=== PATIENT | male | born 1960 | race Caucasian/White ===

== ENCOUNTER 2023-01-22 05:34 | Day surgery (SDC) | payer OTHER, SELFPAY ==
[2023-01-08 11:33] VITALS: BMI 32.2
[2023-01-22 06:29] VITALS: BP 152/88; PULSE 57; RESP 18; TEMP 36.9; O2SAT 98
--- NOTE | 2023-01-22 06:31 | PM.HPGS ---
History of Present Illness History of Present Illness Consent: Risks, benefits, and alternatives have been discussed and questions answered. Patient agrees to proceed with procedure. Chief complaint: Left Chronic Otitis Media Narrative: Alvaro Carrasco is a 62 year old male MYRINGOTOMY TUBE SURGERY POSTOPERATIVE DISCHARGE INSTRUCTIONS DR. PASTRANA [facility] 1. ACTIVITY Your child has received anesthesia for this procedure. He/she may feel somewhat dizzy and or sleepy after the surgery. Anesthesia agents can remain in one?s body for up to 24 hours. It is important for your child to rest for the remainder of the day and be under adult supervision. Your child should not ride his/her bike or perform activities that require coordination. Children are usually very grumpy and fussy for several hours following general anesthesia. 2. EAR DRAINAGE A small amount of drainage from the ear canal is normal following this surgery. This drainage or bleeding may continue for the next 3-7 days. The prescribed ear drops will treat this drainage. The drainage may contain a small amount of blood. A cotton ball may be placed in the ear canal opening. Drainage is often an indication that the tubes are ?doing their job?. Ear drainage after the first week of surgery is abnormal (but not an emergency). Please call Dr. Pastrana?s office if drainage is persistent. 3. PAIN A slight earache is not unusual. This is usually relieved by giving your child Tylenol. Severe pain should be reported to Dr. Pastrana. 4. POSTOPERATIVE CARE Try to avoid water from entering into the ear for up to 10 days. This can be accomplished by either having your child wear a shower cap or placing a small amount of Vaseline on a cotton ball and placing it in your child?s ear canal opening. Please avoid swimming until instructed to do so by Dr. Pastrana. Encourage your child to sneeze with his/her mouth open. When blowing their nose, please do so gently. Administer 3 drops of Ciprofloxacin 0.3% ear drops in both ears twice a day for 3 days, if applicable. 5. DIET Your child may resume their usual diet upon discharge. Nausea is very unlikely with the type of anesthesia that they have received. 6. FOLLOW UP APPOINTMENT Please call Dr. Pastrana?s office and schedule a follow up appointment in 1 week. 01/20 [facility] Past Medical History Medical History Crohn's colitis Fluid level behind tympanic membrane of left ear Hypertension Surgical History Surgical History H/O shoulder surgery Family History Family History Father Diabetes mellitus Hypertension Social History Social History Social History: Caffeine-coffee daily Smoking status: Never smoker Second hand tobacco smoke exposure: No Alcohol intake: current Substance use: never Substance use type: does not use Lack of Transportation: No Lack of Food: Never True Current Housing: I Have Housing Concerned About Future Housing: No Difficulty Paying Gas/Electric Bills: No Difficulty Paying for Meds: No Currently Unemployed: No Education: Master's Degree or Higher Difficulty w/ Childcare or Family Care: No Living arrangements: with family Spiritual care concerns: No Meds Home Medications and Allergies Home Medications Medication Instructions Recorded Confirmed Type amlodipine 2.5 mg tablet 2.5 mg PO DAILY 12/19/22 01/22/23 History lisinopril 10 mg tablet 10 mg PO DAILY 12/19/22 01/22/23 History Al
--- NOTE | 2023-01-22 06:36 | P.HP_ITS ---
History of Present Illness History of Present Illness Consent: Risks, benefits, and alternatives have been discussed and questions answered. Patient agrees to proceed with procedure. Chief complaint: Left Chronic Otitis Media Narrative: Alvaro Carrasoc is a 62 year old male Long history of left chronic otitis Review of Systems Review of Systems: All systems reviewed & are unremarkable except as noted in HPI and below Constitutional: Constitutional: Reports as per HPI ENT: Reports system reviewed and no additional complaints, except as documented and Reports as per HPI [facility] Past Medical History Medical History Crohn's colitis Fluid level behind tympanic membrane of left ear Hypertension Surgical History Surgical History H/O shoulder surgery Family History Family History Father Diabetes mellitus Hypertension Social History Social History Social History: Caffeine-coffee daily Smoking status: Never smoker Second hand tobacco smoke exposure: No Alcohol intake: current Substance use: never Substance use type: does not use Lack of Transportation: No Lack of Food: Never True Current Housing: I Have Housing Concerned About Future Housing: No Difficulty Paying Gas/Electric Bills: No Difficulty Paying for Meds: No Currently Unemployed: No Education: Master's Degree or Higher Difficulty w/ Childcare or Family Care: No Living arrangements: with family Spiritual care concerns: No Meds Home Medications and Allergies Home Medications Medication Instructions Recorded Confirmed Type amlodipine 2.5 mg tablet 2.5 mg PO DAILY 12/19/22 01/22/23 History lisinopril 10 mg tablet 10 mg PO DAILY 12/19/22 01/22/23 History Allergies Allergy/AdvReac Type Severity Reaction Status Date / Time No Known Allergies Allergy Verified 01/22/23 06:27 Vital Signs Vital Signs - 24 hr 01/22/23 06:29 Temperature 36.9 C Pulse Rate 57 L Respiratory Rate 18 Blood Pressure 152/88 H Pulse Oximetry 98 Oxygen Delivery Room Air Exam Const: General: cooperative HENMT: Ears: TM abnormal ( left TM retracted with fluid) Assessment and Plan Assessment and plan (1) Fluid level behind tympanic membrane of left ear: Code(s): H65.92 - Unspecified nonsuppurative otitis media, left ear Status: Acute Plan left myringotomy with tube
[2023-01-22] MEDS: LACTATED RINGERS 1,000 ML 30 ML IV CONT (06:45)
--- NOTE | 2023-01-22 06:51 | WPDANESEPPF ---
Anes - Initial Pre Proc Eval Procedure: Operation Date: 01/22/23 07:30 Proposed Procedures p Left Myringotomy with Insertion of Tube - Doron Locke MD Date/Time: 01/22/23 06:51 Surgeon: Doron Locke MD Pre Op Diagnosis: Left Chronic Otitis Media Patient Data Age: 62 Gender: M Height: 1.78 m Weight: 104.4 kg Last Vital Signs Temp 36.9 C 01/22/23 06:29 Pulse 57 L 01/22/23 06:29 Resp 18 01/22/23 06:29 BP 152/88 H 01/22/23 06:29 Pulse Ox 98 01/22/23 06:29 O2 Del Method Room Air 01/22/23 06:29 Allergies Allergy/AdvReac Type Severity Reaction Status Date / Time No Known Allergies Allergy Verified 01/22/23 06:27 Home Medications Medication Instructions Recorded Confirmed Type amlodipine 2.5 mg tablet 2.5 mg PO DAILY 12/19/22 01/22/23 History lisinopril 10 mg tablet 10 mg PO DAILY 12/19/22 01/22/23 History Patient hx anesthesia problems: none Family hx anesthesia problems: none Results Review: All pre-operative results and documents have been reviewed as part of the pre-operative evaluation. [facility] Past Medical History Medical History Crohn's colitis Fluid level behind tympanic membrane of left ear Hypertension Surgical History Surgical History H/O shoulder surgery Family History Family History Father Diabetes mellitus Hypertension Social History Social History Social History: Caffeine-coffee daily Smoking status: Never smoker Second hand tobacco smoke exposure: No Alcohol intake: current Substance use: never Substance use type: does not use Lack of Transportation: No Lack of Food: Never True Current Housing: I Have Housing Concerned About Future Housing: No Difficulty Paying Gas/Electric Bills: No Difficulty Paying for Meds: No Currently Unemployed: No Education: Master's Degree or Higher Difficulty w/ Childcare or Family Care: No Living arrangements: with family Spiritual care concerns: No Anes - Eval Final PreProcedure Day of Procedure 01/22/23 06:51 Patient weight: obese Heart: regular rate and rhythm Lungs: clear to auscultation Airway: Mallampati scale class II Neurological: alert and oriented Last oral intake: >/= 8 hours ASA classification: III Emergent: no Anesthetic plan: proceed Anesthesia type and monitoring: general and standard monitoring Results Review: All pre-operative results and documents have been reviewed as part of the pre-operative evaluation. Informed Consent: The patient's anesthetic plan and its attendant risks and benefits were discussed with the patient/family/POA. Questions were solicited and answers provided to the satisfaction of the patient/family/POA.
[2023-01-22] MEDS: CIPROFLOXACIN HCL 0.3% OP SOLN 2.5 ML BTL 4 DROP EACH EAR (07:21)
--- NOTE | 2023-01-22 07:21 | WPDHPUPDATE1 ---
History and Physical Update Update Date/Time: 01/22/23 07:21 History and Physical has been reviewed, including an updated exam of the patient. There are NO changes in the patient's condition. Risks, benefits, and alternatives have been discussed and questions answered. Patient agrees to proceed with procedure.
--- NOTE | 2023-01-22 07:23 | W.PM.PROC2 ---
Procedure Note - Detailed Date of Procedure 01/22/23 Pre-op Diagnosis Left Chronic Otitis Media Post-op Diagnosis Same Procedure Performed left tube Surgeon Doron Locke MD Anesthesia General Indications fabrice Description of Procedure Patient was prepped and draped in the in the usual fashion after induction of general anesthesia. The [l] ear was inspected. Cerumen was removed the ear canal. An anteroinferior incision sit incision was made fluid aspirated and a Teflont tube inserted. . Patient awakened returned to recovery in good condition. Estimated Blood Loss 0 Packing No Pathology None sent Complications None Condition Stable Disposition Same day [facility] Billing Surgery - Charge Forward: Surgery Billing
[2023-01-22 07:26] VITALS: BP 114/81; PULSE 61; RESP 16; TEMP 36.4; O2SAT 96
--- NOTE | 2023-01-22 07:35 | WPDANESPN ---
Anes - Prog Note Post-Op Date/Time: 01/22/23 07:35 Cardiovascular status: normal Respiratory status: normal Airway patency: baseline Mental status: baseline Post-Op hydration status: normal Vital Signs: Last Vital Signs Temp 36.9 C 01/22/23 06:29 Pulse 57 L 01/22/23 06:29 Resp 18 01/22/23 06:29 BP 152/88 H 01/22/23 06:29 Pulse Ox 98 01/22/23 06:29 O2 Del Method Room Air 01/22/23 06:29 Pain Score (VAS): 0/10 Patient Feedback: Patient satisfied with anesthetic care.
[2023-01-22 07:36] VITALS: BP 133/76; PULSE 60; RESP 16; O2SAT 95
[2023-01-22 07:46] VITALS: BP 130/83; PULSE 60; RESP 15; O2SAT 96
[2023-01-22 07:57] VITALS: BP 134/97; PULSE 55; RESP 16; O2SAT 96
== END 2023-01-22 08:40 | disposition home or self-care (01) ==
PROVIDERS: PCP Internal Medicine; Visit Provider Otolaryngology
DX: H65.22 Chronic serous otitis media, left ear (principal)
CPT/HCPCS: 69436; J7342

== ENCOUNTER 2023-02-12 09:04 | Outpatient (CLI) | payer OTHER, SELFPAY | END 2023-02-12 09:05 | disposition home or self-care (01) | LOC: ANHBWCAUD 09:06 | PROVIDERS: PCP Internal Medicine; Visit Provider Otolaryngology | DX: H65.92 Unspecified nonsuppurative otitis media, left ear (principal); H90.42 Sensorineural hearing loss, unilateral, left ear, with unrestricted hearing on the contralateral side; H90.71 Mixed conductive and sensorineural hearing loss, unilateral, right ear, with unrestricted hearing on the contralateral side | CPT/HCPCS: 92557; 92567 ==

== ENCOUNTER 2024-12-02 14:50 | Outpatient (CLI) | payer OTHER, SELFPAY ==
--- NOTE | ~2024-12-02 | CT_ITS ---
CT sinus wo con Ordering provider: Danya Griffith MD History: . J32.9 - Chronic sinusitis, unspecified . Comparison: The Technique: Thin slice Scans CT of the paranasal sinuses was performed with coronal and sagittal refor matted images. No IV contrast. . Automated exposure control and iterative reconstruction technique w ere employed. The dose-length product was 309.35 mGy-cm. Findings: NASAL SEPTUM: Mild left nasal septal deviation. OSTEOMEATAL UNITS: Bilaterally patent. NASAL TURBINATES AND NASOPHARYNX: Normal. PARANASAL SINUSES: Well aerated. VISUALIZED MASTOIDS: Minimal effusion the left mastoid air cells. Normal as visualized. BONES: Normal. SUPERFICIAL SOFT TISSUES/VISUALIZED BRAIN PARENCHYMA: Normal. IMPRESSION: Left nasal septal deviation. Other appearances are unremarkable. Reviewed, dictated and finalized at location A.
== END 2024-12-02 14:51 | disposition home or self-care (01) ==
PROVIDERS: PCP Internal Medicine; Visit Provider Otolaryngology Otolaryngology/Facial Plastic Surgery
DX: J32.9 Chronic sinusitis, unspecified (principal); J34.2 Deviated nasal septum
CPT/HCPCS: 70486

== ENCOUNTER 2024-12-15 10:39 | Outpatient (CLI) | payer OTHER, SELFPAY ==
--- OUTSIDE RECORDS SUMMARY | 2024-12-15 10:42 | XMS_ITS | Encounter Summary ---
Author Organization [facility] Health Address [address] [place] [address] Care Team Providers Care Date Puller Name Role Phone Unavailable Primary Care Provider Unavailabl e Encounter Details Date Type Department Care Team (Late st Contact Info) Description 06/27/2021 Lab Requisition [facility] Derm[facility] Lab [address] [place] [address] Uri Duenas Jr., MD [address] [place] [address] Social History Tobacco Use Types Packs/Day Years Used Date Smoking Tobacco: Never Assessed Sex and Gender Information Value Date Recorded Sex Assigned at Not on file Legal Sex Male 12:03 PM CDT Gender Identity Not on file Sexual Orientation Not on file documented as of this encounter Plan of Treatment Not on file documented as of this encounter Procedures Procedure Name Priority Date/Time Associated Diagnosis Comments DERMATOPATHOLOGY Routine 06/26/2021 12:0 0 AM POWER TOOL REPAIR TECHNICIAN documented in this encounter Results * DERMATOPATHOLOGY (06/26/2021 12:00 AM POWER TOOL REPAIR TECHNICIAN) Case Report Dermatopathology Report Case: [id number] Authorizing Provider: Uri Duenas Jr., MD Collected: 06/26/2021 12:00 AM Ordering Location: [facility] Received: 06/27/2021 03:38 PM Pathologist: Julia Coronel MD Specimens: A) - Skin, right inferior medial upper back B) - Skin, left dorsal wrist C) - Skin, left central malar cheek 2 5:35 PM POWER TOOL REPAIR TECHNICIAN DERMATOPATHOLOGY LABORATORY Final Diagnosis Specimen A. SKIN, right inferior medial upper back: BENIGN VERRUCOUS KERATOSIS, INFLAMED (L82.1) (see microscopic description) Specimen B. SKIN, left dorsal wrist: DERMATOFIBROMA (D23.9) Specimen C. SKIN, left central malar cheek: FOLLICULITIS, SUPPURATIVE WITH GRAM POSITIVE COCCI IN THE FOLLICULAR OSTIA (L73.8) (see microscopic description) 2 5:35 PM [facility] DERMATOPATHOLOGY [facility]ORAT[facility] at [address] POWER TOOL REPAIR TECHNICIAN Clinical History A: Inflamed Seborrheic Keratosis vs. Squamous Cell Carcinoma vs. Basal Cell Carcinoma vs. Scar tissue. B-C: Basal Cell Carcinoma vs. Dermal Nevus vs. prurigo nodularis 2 5:35 PM [facility] DERMATOPATH[facility] Gross Description Specimen A: Received is one formalin filled container labeled with the patient's name and designated right inferior medial upper back. The specimen consists of a shave biopsy measuring [id number]. Jar 0. Specimen B: Received is one formalin filled container labeled with the patient's name and designated left dorsal wrist. The specimen consists of a shave biopsy measuring [id number]. Jar 0. Specimen C: Received is one formalin filled container labeled with the patient's name and designated left central malar cheek. The specimen consists of a shave biopsy measuring [id number]. Jar 0. 2 5:35 PM [facility] DERMATOPATHOLOGY [facility]OR[facility] Microscopic Description Specimen A. SKIN, right inferior medial upper back: Sections show hyperkeratosis, papillomatosis, hypergranulosis, and acanthosis. Inflammatory cells are present within the dermis. These histological findings can be seen in a verruca vulgaris or a seborrheic keratosis. Additional deeper sections were obtained and reviewed. Specimen B. SKIN, left dorsal wrist: There is epidermal hyperplasia. Within the dermis, there are fibrohistiocytic cells in haphazard array among coarse collagen bundles. Specimen C. SKIN, left central malar cheek: Sections show inflammation of the follicular infundibulum, with numerous neutrophils. Tissue gram stain highlights gram positive bacterial cocci in the follicular ostia. Gro[place]'s methenamine silver (GMS) stain fails to highlight fungal elements in the available sections. Additional deeper sections were obtained and reviewed. 2 5:35 PM POWER TOOL REPAIR TECHNICIAN DERMATOPATHOLOGY LABORATORY Disclaimer An external and internal positive and negative controls are appropriate for the histochemical, immunohistochemical and immunofluorescence stain(s) in this case (if any), except where stated explicitly. The performance characteristics of the stain(s) cited in this report were developed and its performance characteristic determined by the Dermatopathology Laboratory at [facility], directed by Dr. Twin Segura. These tests need not be, and therefore are not, approved by the [place] Food and Drug Administration. The tests are used for clinical purposes. Billing Codes Specimen Charges Stain Charges 30825 [id number] 30481 1 1 1 11501 67338 1 1 2 5:35 PM POWER TOOL REPAIR TECHNICIAN DERMATOPATHOLOGY LABORATORY Embedded Images 2 5:35 PM POWER TOOL REPAIR TECHNICIAN DERMATOPATHOLOGY LABORATORY Pathology/Cytology TISSUE SPECIMEN FROM SKIN / Unknown 06/26/2021 06/27/2021 3:38 PM POWER TOOL REPAIR TECHNICIAN Miscellaneous samples (specimen) TISSUE SPECIMEN FROM SKIN / Unknown 06/26/2021 06/27/2021 3:38 PM POWER TOOL REPAIR TECHNICIAN Miscellaneous samples (specimen) TISSUE SPECIMEN FROM SKIN / Unknown 06/26/2021 06/27/2021 3:38 PM POWER TOOL REPAIR TECHNICIAN Uri Duenas Jr., MD LAB - PATHOLOGY/CYTOLOG Y ORDERABLES Final Result DERMATOPATHOLOGY LABORATORY [facility] - Department of Dermatology [address] [place] [address], [facility] [phone] documented in this encounter Visit Diagnoses Not on filedocumented in this encounter
--- OUTSIDE RECORDS SUMMARY | 2024-12-15 10:42 | XMS_ITS | Encounter Summary ---
Author Organization [facility] Address [address] [place] [address] Phone Care Team Providers Care Urogynaecologist Name Role Phone Young Martins MD Primary Care Provider [phone] Lily Serrano MD Unavailable Bj Segura MD Unavailable Cash Marrufo MD Unavailable Ana Luque APRN, APPLICATION DEVELOPMENT DIRECTOR Unavailable Doyle Angeles MD Unavailable Reason for Visit * Reason Comments Medication Refill Encounter Details Date Type Department Care Team (Late st Contact Info) Description 11/16/2020 Refill [facility] - Primary Care - [place] [address] [place] [phone] Young Martins MD [address] [place], [place] [id number] Medication Refill Social History Tobacco Use Types Packs/Day Years Used Date Smoking Tobacco: Never Smokeless Tobacco: Never Alcohol Use Standard Drinks/Week Comments Yes 1 (1 standard drink = 0.6 oz pur e alcohol) once a week Sexually Active Control Partners Comments Yes Sex and Gender Information Value Date Recorded Sex Assigned at Not on file Legal Sex Male 12:21 AM CDT Gender Identity Not on file Sexual Orientation Not on file COVID-19 Exposure Response Date Recorded In the last month, have you been in contact with someone who was confirmed or suspected to have Coronavirus / COVID-19? No / Unsure 11/14/2020 8:08 AM CDT documented as of this encounter Plan of Treatment Upcoming Encounters Date Type Department Care Team (Late st Contact Info) Description 04/13/2025 9:15 AM AMERICAN SIGN LANGUAGE INTERPRETER Office Visit [facility] - Primary Care - [place] [address] [place] [address] Young Martins MD [address] [place] [address] documented as of this encounter Visit Diagnoses Not on filedocumented in this encounter Additional Health Concerns Assessment Noted Time PHQ-9 Depression Total Score: 0 11/07/19 18 8:00 AM CDT documented as of this encounter Care Teams Urogynaecologist Relationship Specialty Start Date End Date Young Martins MD [address] [place] [address] PCP - General Internal Medicine 03/04/15 Lily Serrano MD [address] [place] [address] Consulting Physician Gastroenterology 09/10/16 Bj Segura MD [address] [facility] [address] [place] [address] Consulting Physician Neurology 09/10/16 Cash Marrufo MD 4 [facility] [address] [place] [address] Consulting Physician Psychiatry 09/10/16 Ana Luque, AIRLINE PILOT, APPLICATION DEVELOPMENT DIRECTOR [address] [place] [address] Nurse Practitioner Pain Medicine-Pain Management 07/04/21 Doyle Angeles MD [address] [place] [address] Consulting Physician Orthopaedic Sports Medicine 09/03/22 Pamela Sebastian MD Consulting Physician Endocrinology 09/10/16 documented as of this encounter
--- OUTSIDE RECORDS SUMMARY | 2024-12-15 10:42 | XMS_ITS | Encounter Summary ---
Author Organization [facility] Address [address] [place] [address] Phone Care Team Providers Care Broom Handle Dipper Name Role Phone Young Martins MD Primary Care Provider [phone] Lily Serrano MD Unavailable [phone] Bj Segura MD Unavailable Cash Marrufo MD Unavailable Ana Luque APRN, STENCILER Unavailable Doyle Angeles MD Unavailable Reason for Visit * Reason Comments Medication Refill Encounter Details Date Type Department Care Team (Late st Contact Info) Description 12/08/2020 Refill [facility] - Primary Care - [place] [address] [place] [phone] Young Martins MD [address] [place], [place] [phone] Medication Refill Social History Tobacco Use Types [...] AM CDT documented as of this encounter Miscellaneous Notes * Telephone Encounter - Kaylynn Almaraz RN - 12/08/2020 1:05 PM CDT Filled earlier this month for 90 days documented in this encounter Plan of Treatment Upcoming Encounters Date Type Department Care Team (Late st Contact Info) Description 04/13/2025 9:15 AM RESOURCE AGENT Office Visit [facility] - Primary Care - [place] [address] [place] [address] Young Martins MD [address] [place] [address] documented as of this encounter Visit Diagnoses Not on filedocumented in this encounter Additional Health Concerns Assessment Noted Time PHQ-9 Depression Total Score: 0 11/07/19 18 8:00 AM CDT documented as of this encounter Care Teams Broom Handle Dipper Relationship Specialty Start Date End Date Young Martins MD [address] [place] [address] PCP - General Internal Medicine 03/04/15 Lily Serrano MD [address] [place] [address] Consulting Physician Gastroenterology 09/10/16 Bj Segura MD [address] [place] [address] [address] [place] [address] Consulting Physician Neurology 09/10/16 Cash aMrrufo MD [address] [place] [address] [address] [place] [address] Consulting Physician Psychiatry 09/10/16 Ana Luque APRN, STENCILER [address] [place] [address] Nurse Practitioner Pain Medicine-Pain Management 07/04/21 Doyle Angeles MD [address] [place] [address] Consulting Physician Orthopaedic Sports Medicine 09/03/22 Pamela Sebastian MD Consulting Physician Endocrinology 09/10/16 documented as of this encounter
--- OUTSIDE RECORDS SUMMARY | 2024-12-15 10:42 | XMS_ITS | Encounter Summary ---
Author Organization [facility] Address [address] [place] [address] Phone Care Team Providers Care Ski Edge Painter Name Role Phone Young Martins MD Primary Care Provider [phone] Lily Serrano MD Unavailable Bj Segura MD Unavailable Cash Marrufo MD Unavailable Ana Luque APRN, CNP Unavailable [phone] Doyle Angeles MD Unavailable Reason for Visit * Reason Comments Medication Refill Encounter Details Date Type Department Care Team (Late st Contact Info) Description 02/23/2021 Refill [facility] [address] [place] [address] Young Martins MD [address] [place] [address] Medication Refill Social History Tobacco Use Types [...] on file documented as of this encounter Miscellaneous Notes * Telephone Encounter - Kaylynn Almaraz RN - 02/23/2021 8:13 AM CDT The original prescription was discontinued on 07/17/2020 by Rosa Zamora RMA for the following reason: Dose adjustment documented in this encounter Plan of Treatment Upcoming Encounters Date Type Department Care Team (Late st Contact Info) Description 04/13/2025 9:15 AM MARKETING AUTOMATION ANALYST Office Visit [facility] - Primary Care - [place] [address] [place] [address] Young Martins MD [address] [place] [address] documented as of this encounter Visit Diagnoses Diagnosis Essential hypertension Unspecified essential hypertension documented in this encounter Additional Health Concerns Assessment Noted Time PHQ-9 Depression Total Score: 0 11/07/19 18 8:00 AM CDT documented as of this encounter Care Teams Ski Edge Painter Relationship Specialty Start Date End Date Young Martins MD [address] [place] [address] PCP - General Internal Medicine 03/04/15 Lily Serrano MD [address] [place] [address] Consulting Physician Gastroenterology 09/10/16 Bj Segura MD [address] [place] [address] [address] [place] [address] Consulting Physician Neurology 09/10/16 Cash Marrufo MD [address] [place] [address] [address] [place] [address] Consulting Physician Psychiatry 09/10/16 Ana Luque APRN, DOWN FILLER [address] [address] Nurse Practitioner Pain Medicine-Pain Management 07/04/21 Doyle Angeles MD [address] [place] [address] Consulting Physician Orthopaedic Sports Medicine 09/03/22 Pamela Sebastian MD Consulting Physician Endocrinology 09/10/16 documented as of this encounter
--- OUTSIDE RECORDS SUMMARY | 2024-12-15 10:42 | XMS_ITS | Encounter Summary ---
Author Organization [facility] Address [address] [facility] [place] [address] Care Team Providers Care Baker Head Name Role Phone Unavailable Primary Care Provider Unavailabl e Encounter Details Date Type Department Care Team (Late st Contact Info) Description 09/17/2021 Lab Requisition [facility] DermPath Lab [address] [facility] [place] [address] Uri Duenas Jr., MD [address] [facility] [address] [place] [address] Social History Tobacco Use Types Packs/Day Years [...] Priority Date/Time Associated Diagnosis Comments DERMATOPATHOLOGY Routine 09/14/2021 12:0 0 AM CDT documented in this encounter Results * DERMATOPATHOLOGY (09/14/2021 12:00 AM CDT) Case Report Dermatopathology Report Case: [id number] Authorizing Provider: Uri Duenas Jr., MD Collected: 09/14/2021 12:00 AM Ordering Location: [facility] DermPath Lab Received: 09/17/2021 12:58 PM Pathologist: Nayana Perry MD Specimens: A) - Skin, right medial inferior chest B) - Skin, right inferior central malar cheek 2:42 PM CDT DERMATOPATHOLOGY LABORATORY Final Diagnosis Specimen A. SKIN, right medial inferior chest: BASAL CELL CARCINOMA, NODULAR TYPE (C44.519) Specimen B. SKIN, right inferior central malar cheek: SEBACEOUS HYPERPLASIA (L73.8) (see microscopic description) 2:42 PM CDT DERMATOPATHOLOGY LABORATORY at 1442 CDT Clinical History A: Inflamed Seborrheic Keratosis vs. Basal Cell Carcinoma vs. Squamous Cell Carcinoma. B: Sebaceous Hyperplasia vs. Basal Cell Carcinoma. 2:42 PM CDT DERMATOPATHOLOGY LABORATORY Gross Description Specimen A: Received is one formalin filled container labeled with the patient's name and designated right medial inferior chest. The specimen consists of a shave biopsy measuring [id number]. Jar 0. Specimen B: Received is one formalin filled container labeled with the patient's name and designated right inferior central malar cheek. The specimen consists of a shave biopsy measuring [id number]. Jar 0. 2:42 PM CDT DERMATOPATHOLOGY LABORATORY Microscopic Description Specimen A. SKIN, right medial inferior chest: Within the dermis there are aggregates of basaloid cells with a high nuclear to cytoplasmic ratio and peripheral palisading. Specimen B. SKIN, right inferior central malar cheek: There are prominent sebaceous gland lobules surrounding a dilated hair follicle. There is no evidence of epithelial dysplasia or malignancy in the sections examined. 2:42 PM CDT DERMATOPATHOLOGY LABORATORY Disclaimer An external and internal positive and negative controls are appropriate for the histochemical, immunohistochemical and immunofluorescence stain(s) in this case (if any), except where stated explicitly. The performance characteristics of the stain(s) cited in this report were developed and its performance characteristic determined by the Dermatopathology Laboratory at [facility], directed by Dr. Twin Segura. These tests need not be, and therefore are not, approved by the [place] Food and Drug Administration. The tests are used for clinical purposes. Billing Codes Specimen Charges Stain Charges 89822 49100 1 1 2 2:42 PM CDT DERMATOPATHOLOGY LABORATORY Embedded Images 2:42 PM CDT DERMATOPATHOLOGY LABORATORY Pathology/Cytology TISSUE SPECIMEN FROM SKIN / Unknown 09/14/2021 09/17/2021 12:58 PM CDT Miscellaneous samples (specimen) TISSUE SPECIMEN FROM SKIN / Unknown 09/14/2021 09/17/2021 12:58 PM CDT us Uri Duenas Jr., MD LAB - PATHOLOGY/CYTOLOG Y ORDERABLES Final Result DERMATOPATHOLOGY LABORATORY [facility] - Department of Dermatology [facility] Specialized Medicine [address] [place] [address], [address] [phone] documented in this encounter Visit Diagnoses Not on filedocumented in this encounter
--- OUTSIDE RECORDS SUMMARY | 2024-12-15 10:42 | XMS_ITS | Encounter Summary ---
Author Organization [facility] Address [address] [place] [address] Phone Care Team Providers Care Nuclear Unit Operator Name Role Phone Young Martins MD Primary Care Provider [phone] Lily Serrano MD Unavailable Bj Segura MD Unavailable Cash Marrufo MD Unavailable Ana Luque APRN, AMERICANIZATION TEACHER Unavailable [phone] Doyle Angeles MD Unavailable [phone] Encounter Details Date Type Department Care Team (Late st Contact Info) Description 12/08/2024 Results Follow-Up [facility] - Ear, Nose & Throat - [place] [address] [place] [address] Danya Griffith MD [address] [place] [address] [address] [address] [address] - HEAD/NECK Social History Tobacco Use Types Packs/Day Years Used Date Smoking Tobacco: Never Smokeless Tobacco: Never Alcohol Use Standard Drinks/Week Comments Yes 1 (1 standard drink = 0.6 oz pur e alcohol) once a week [facility] Utilities Answer Date Recorded In the past 12 months has [employer] electric, gas, oil, or water company threatened to shut off services in your home? Patient declined 10/05/2024 Social Connection and Isolation Panel Answer Date Recorded In a typical week, how many times do you talk on the phone with family, friends, or neighbors? Patient declined 10/05/2024 How often do you get togethe r with friends or relatives? Patient declined 10/05/2024 How often do you attend faith or anabaptist serv ices? Patient declined 10/05/2024 Do you belong to any clubs o r organizations such as faith groups, unions, fraternal or athletic groups, or school groups? Patient declined 10/05/2024 How often do you attend meet ings of the clubs or organizations you belong to? Patient declined 10/05/2024 Are you , , di vorced, , never , or living with a partner? Patient declined 10/05/2024 AUDIT-C Answer Date Recorded Q1: How often do you have a drink containing alc ohol? Patient declined 10/05/2024 Q2: How many drinks containi ng alcohol do you have on a typical day when you are drinking? Patient declined 10/05/2024 Q3: How often do you have si x or more drinks on one occasion? Patient declined 10/05/2024 Overall Financial Resource Strain (CARDIA) Answe r Date Recorded How hard is it for you to pa y for the very basics like food, housing, medical care, and heating? Patient declined 10/05/2024 PHQ-2 Answer Date Recorded Total Score - Questions 1-9 0 03/10 [facility] - Occupational Stress Questionnaire Answer Date Recorded Do you feel stress - tense, restless, nervous, or anxious, or unable to sleep at night because your mind is troubled all the time - these days? Patient declined 10/05/2024 Exercise Vital Sign Answer Date Recorde d On average, how many days pe r week do you engage in moderate to strenuous exercise (like a brisk walk)? Patient declined On average, how many minutes do you engage in exercise at this level? Patient declined 10/05/2024 Hunger Vital Sign Answer Date Recorded Within the past 12 months, y ou worried that your food would run out before you got the money to buy more. Patient declined Within the past 12 months, t he food you bought just didn't last and you didn't have money to get more. Patient declined PRAPARE - Transportation Answer Date Re corded In the past 12 months, has l ack of transportation kept you from medical appointments or from getting medications? Patient declined 10/05/2024 In the past 12 months, has l ack of transportation kept you from meetings, work, or from getting things needed for daily living? Patient declined 10/05/2024 Housing Stability Vital Sign Answer Addison e Recorded In the last 12 months, was t here a time when you were not able to pay the mortgage or rent on time? Patient declined 10/06/19 25 Number of Times Moved in the Last Year Not on fi le 10/05/2024 At any time in the past 12 m [facility], were you homeless or living in a alf (including now)? Patient declined 10/05/2024 Education Answer Date Recorded What is the highest level of school you have completed or the highest degree you have received? Bachelor's degree (e.g., BA, AB, BS) 08/06/2022 Sexually Active Control Partners Comments Yes Sex and Gender Information Value Date Recorded Sex Assigned at Not on file Legal Sex Male 12:21 AM CDT Gender Identity Not on file Sexual Orientation Not on file documented as of this encounter Progress Notes * Danya Griffith MD - 12/08/2024 5:[address] scan result was [facility] with the patient at [facility] documented in this encounter Plan of Treatment Upcoming Encounters Date Type Department Care Team (Late st Contact Info) Description 04/13/2025 9:15 AM CHIEF LIBRARIAN BRANCH Office Visit [facility] - Primary Care - [place] [address] [place] [phone] Young Martins MD [address] [place] [address] documented as of this encounter Visit Diagnoses Not on filedocumented in this encounter Additional Health Concerns Assessment Noted Time PHQ-9 Depression Total Score: 0 04/01/20 24 10:26 AM CDT documented as of this encounter Care Teams Nuclear Unit Operator Relationship Specialty Start Date End Date Young Martins MD [address] [place] [address] PCP - General Internal Medicine 03/04/15 Lily Serrano MD [address] [place] [address] Consulting Physician Gastroenterology 09/10/16 Bj Segura MD [address] [place] [address] [address] [place] [address] Consulting Physician Neurology 09/10/16 Cash Marrufo MD [address] [place] [address] [address] [place] [address] Consulting Physician Psychiatry 09/10/16 Ana Luque APRN, AMERICANIZATION TEACHER [address] [place] [address] Nurse Practitioner Pain Medicine-Pain Management 07/04/21 Doyle Angeles MD [address] [place] [address] Consulting Physician Orthopaedic Sports Medicine 09/03/22 Pamela Sebastian MD Consulting Physician Endocrinology 09/10/16 documented as of this encounter
--- OUTSIDE RECORDS SUMMARY | 2024-12-15 10:42 | XMS_ITS | Encounter Summary ---
Author Organization [facility] Address [address] [place] [address] Care Team Providers Care Visitor Services Specialist Name Role Phone Unavailable Primary Care Provider Unavailabl e Encounter Details Date Type Department Care Team (Late st Contact Info) Description 02/14/2023 Lab Requisition [facility] - DermPath Lab [address] [facility] [place] [address] Uri Duenas Jr., MD [address] [facility] [address] [place] [address] Social History Tobacco Use Types Packs/Day Years [...] Priority Date/Time Associated Diagnosis Comments DERMATOPATHOLOGY Routine 02/13/2023 3:33 AM CDT documented in this encounter Results * DERMATOPATHOLOGY (02/13/2023 3:33 AM CDT) Case Report Dermatopathology Report Case: [id number] Authorizing Provider: Uri Duenas Jr., MD Collected: 02/13/2023 03:33 AM Ordering Location: [facility] DermPath Lab Received: 02/16/2023 11:39 AM Pathologist: Nayana Perry MD Specimens: A) - Skin, right proximal dorsal forearm B) - Skin, left proximal dorsal forearm C) - Skin, left proximal ulnar dorsal forearm D) - Skin, left distal posterior upper arm 1:41 PM CDT DERMATOPATHOLOGY LABORATORY Final Diagnosis Specimen A. SKIN, right proximal dorsal forearm: SQUAMOUS CELL CARCINOMA, WELL DIFFERENTIATED (C44.622) Specimen B. SKIN, left proximal dorsal forearm: BASAL CELL CARCINOMA, INFILTRATIVE PATTERN (C44.619) Specimen C. 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 The specimen consists of a shave biopsy measuring 8x7x3 mm. Jar 0. Specimen B: Received is one formalin filled container labeled with the patient's name and designated left proximal dorsal forearm. The specimen consists of a shave biopsy measuring 9x9x2 mm. Jar 0. Specimen C: Received is one formalin filled container labeled with the patient's name and designated left proximal ulnar dorsal forearm. The specimen consists of a shave biopsy measuring 9x9x3 mm. Jar 0. Specimen D: Received is one formalin filled container labeled with the patient's name and designated left distal posterior upper arm. The specimen consists of a shave biopsy measuring 10x8x2 mm. Jar 0. 3 1:41 PM T DERMATOPATHOLOGY LABORATORY Microscopic Description Specimen A. SKIN, right proximal dorsal forearm: Arising in the epidermis and extending into the dermis there are irregularly shaped aggregates of keratinocytes showing evidence of premature cornification. Specimen B. SKIN, left proximal dorsal forearm: Within the dermis there are nodular aggregates of basaloid cells associated with fibromyxoid stroma and epithelial-stromal clefts. At the advancing margin of the neoplasm, there are smaller angulated nests that infiltrate the dermis. Specimen C. SKIN, left proximal ulnar dorsal forearm: The epidermis shows parakeratosis, full thickness disorderly maturation of keratinocytes, mitoses at different levels, and dyskeratotic cells. Specimen D. SKIN, left distal posterior upper arm: There is hyperkeratosis alternating with parakeratosis. There is epidermal hyperplasia with disorderly maturation of keratinocytes with nuclear pleomorphism confined to the lower half of the epidermis. There is a lymphohistiocytic infiltrate within the dermis. Sections show associated acanthosis, hypergranulosis, and hyperkeratosis. The papillary dermis is fibrotic. A dilated follicle with associated intrafollicular bacteria is noted. 3 1:41 PM CDT DERMATOPATHOLOGY LABORATORY Disclaimer An external and internal positive and negative controls are appropriate for the histochemical, immunohistochemical and immunofluorescence stain(s) in this case (if any), except where stated explicitly. The performance characteristics of the stain(s) cited in this report were developed and its performance characteristic determined by the Dermatopathology Laboratory at [facility], directed by Dr. Twin Segura. These tests need not be, and therefore are not, approved by the [place] Food and Drug Administration. The tests are used for clinical purposes. Billing Codes Specimen Charges Stain Charges 35354 73273 [id number] 1 1 1 1 3 1:41 PM CDT DERMATOPATHOLOGY LABORATORY Embedded Images 3 1:41 PM CDT DERMATOPATHOLOGY LABORATORY Pathology/Cytology TISSUE SPECIMEN FROM SKIN / Unknown 02/13/2023 3:33 AM CDT 02/16/2023 11:39 AM CDT Miscellaneous samples (specimen) TISSUE SPECIMEN FROM SKIN / Unknown 02/13/2023 3:33 AM CDT 02/16/2023 11:39 AM CDT Miscellaneous samples (specimen) TISSUE SPECIMEN FROM SKIN / Unknown 02/13/2023 3:33 AM CDT 02/16/2023 11:39 AM CDT Miscellaneous samples (specimen) TISSUE SPECIMEN FROM SKIN / Unknown 02/13/2023 3:33 AM CDT 02/16/2023 11:39 AM CDT us Uri Duenas Jr., MD LAB - PATHOLOGY/CYTOLOG Y ORDERABLES Final Result DERMATOPATHOLOGY LABORATORY [facility] - Department of Dermatology [facility] [address] [facility], [address]rd [address] [phone] documented in this encounter Visit Diagnoses Not on filedocumented in this encounter
--- OUTSIDE RECORDS SUMMARY | 2024-12-15 10:43 | XMS_ITS | Clinical Summary ---
Author Organization [facility] Address [address] [place] [address] Phone Care Team Providers Care Payroll Services Analyst Name Role Phone Young Martins MD Primary Care Provider [phone] Lily Serrano MD Unavailable Bj Segura MD Unavailable [phone] Cash Marrufo MD Unavailable Ana Luque APRN, LACQUER MAKER Unavailable Doyle Angeles MD Unavailable [phone] Allergies No known active allergies Medications testosterone cypionate (DEPO-TESTOSTE IGNACIO) 200 MG/ML Solution weekly 4 08/16/19 17 Active acetaminophen (TYLENOL) 500 MG Tablet 10/17/19 12 Active buPROPion (WELLBUTRIN) 300 MG TABLET SR 24 HR XL tablet Take 300 mg by mouth every morning. 05/21/20 22 Active buPROPion (WELLBUTRIN) 150 MG XL tablet buPROPion HCl ER (XL) 150 MG Oral Tablet Extended Release 24 Hour QTY: 0 tablet Days: 0 Refills: 0 Written: 04/10/22 Patient Instructions: 04/10/20 22 Active Descovy 200-25 MG Tablet Take 1 Tablet by mouth daily. 09/18/19 24 Active inFLIXimab-dyy b (Inflectra) 100 MG Recon Soln infuse (10MG/KG) by intravenous route every 8 weeks over no less than 08/29/19 24 Active BD Plastipak Syringe 21G X 1 3 ML Misc USE TO DRAW UP TESTOSTERONE WEEKLY 02/21/20 24 Active Tadalafil 5 MG TabletIndicati ons:Erectile dysfunction, unspecified erectile dysfunction type TAKE 1 TABLET BY MOUTH EVERY DAY 90 Tablet 1 05/19/20 24 Active lisinopril (PRINIVIL, ZESTRIL) 40 MG Tablet TAKE 1 TABLET BY MOUTH EVERY DAY 90 Tablet 3 08/26/19 25 Active fluticasone (FLONASE) 50 MCG/ACT Suspension USE 2 SPRAYS IN EACH NOSTRIL EVERY NIGHT AT BEDTIME NEEDED FOR CONGESTION 09/09/19 25 Active amLODIPine (NORVASC) 10 MG TabletIndicati ons:Hypertensi on, essential TAKE 1 TABLET BY MOUTH EVERY DAY 90 Tablet 1 11/23/19 25 Active hydroCHLOROthi azide (MICROZIDE) 12.5 MG CapsuleIndicat ions:Hypertens ion, essential TAKE 1 CAPSULE BY MOUTH EVERY DAY 90 Capsule 3 11/23/19 25 Active hydroCHLOROthi azide (MICROZIDE) 12.5 MG CapsuleIndicat ions:Hypertens ion, essential Take 1 Capsule by mouth daily. 90 Capsule 3 09/25/19 24 025 Discontinued amLODIPine (NORVASC) 10 MG TabletIndicati ons:Hypertensi on, essential TAKE 1 TABLET BY MOUTH EVERY DAY 90 Tablet 1 05/20/20 24 025 Discontinued Active Problems Problem Noted Date Diagnosed Date Polycythemia 09/09/2024 RAFAELA on CPAP 08/01/2024 Gouty arthritis of right knee 01/01/2023 Complete rupture of rotator cuff 08/14/2022 Overview (09/03/2022): Added automatically from request for surgery [id number] Rupture of distal biceps tendon 03/05/2022 IGT (impaired glucose tolerance) 10/19/2020 BMI 36.0-36.9,adult 07/11/2020 TIA (transient ischemic attack) 07/11/2020 Overview (10/19/2020): Last Assessment & Plan: Patient was having difficulty finding his words in the ER. He underwent an MRI, report pending. Will check a fasting lipid panel and A1c. Will check ultrasound of the carotids and echo with bubble study. Neurology has been consulted, await their evaluation. 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 Need to continue same management Hypertension, essential Anxiety and depression Mixed hyperlipidemia Crohn's disease Resolved Problems Problem Noted Date Diagnosed Date Resolved Date Hypertensive emergency 07/11/202011/14 Overview (07/17/2020): Last Assessment & Plan: With possible emergency with difficulty finding words. Blood pressure has improved currently. Patient is on Zestoretic 03/20.5 at home, will increase lisinopril to 20 mg daily and hydrochlorothiazide to 25 mg daily. Continue to monitor and adjust as needed. SCC (squamous cell carcinoma), arm, left 03/23/2020 07/17/2020 Overview (07/17/2020): Added automatically from request for surgery [id number] Basal cell carcinoma (BCC) of left forearm 03/23/2020 07/17/2020 Overview (07/17/2020): Added automatically from request for surgery [id number] COVID-19 virus infection 03/15/202012/2019 Overview (03/15/2020): 01/2020. Chronic loss of smell and taste Skin neoplasm 03/10/2020 03/15/2020 Abscess of right forearm 10/22/2018 Hepatitis C virus infection without hepatic coma 01/28/2018 02/01/2019 Overview (11/06/2018): Last Assessment & Plan: Patient with HCV ab+ but with a recent HCV GT that came back u/d. - waiting for HCV VL to confirm status, but it is very likely that patient has cleared HCV in the past - will call patient once result is available Anxiety disorder 12/22/2017 11/06/2018 Exposure to HIV virus 07/30/20172019 Grief at loss of child 07/01/201702/01 Cervical dystonia 10/12/2014 04/01/2024 Overview (04/01/2024): Spasmodic torticollis Encounters Date Type Department Care Team Description 12/08/2024 Results Follow-Up [facility] - [place] [address] [place] [address] - HEAD/NECK 11/21/2024 Refill [facility] [place] [address] [place] [address] Young Martins MD Medication Refill 10/13/2024 Telephone [facility] [place] [address] [place] [address] Young Martins MD 10/05/2024 10:40 AM CDT Lab [facility] [place] [address] [facility] [place] [address] [facility] Impaired glucose tolerance associated with drugs (Primary Dx); Routine general medical examination at a health care facility; Mixed hyperlipidemia; Essential hypertension, malignant Discharge Disposition: Discharged to home or Selfcare 10/05/2024 8:45 AM CDT Office Visit [facility] [place] [address] [place] [address] Young Martins MD Encounter for health maintenance examination (Adult) (Primary Dx); Hypertension, essential; Mixed hyperlipidemia; IGT (impaired glucose tolerance); Hypogonadism in male; Essential tremor; Crohn's disease with complication, unspecified gastrointestinal tract location (HCC); Anxiety and depression; RAFAELA on CPAP Discharge Disposition: Discharged to home or Selfcare 10/05/2024 Travel from Last 3 Months Immunizations Immunization Administration Dates Next Due [id number] olvin MCV4, Unspecif ied Formulation 02/07/2015 Covid-19 Vaccine, Vector-nr, Rs-ad26, Pf, 0.5 Ml ([employer]) 08/15/2020 HEP A/HEP B Combined Vaccine 04/20/2015,02/08/20 Human Papillomavirus Vaccine (HPV), quadrivalent 04/20/2015,02/07/2015 Influenza Vaccine greater than 3 yrs ,05/06/2018,03/09/2015,06/201203/09/2016 Influenza Vaccine, Quadrivalent, PF 02/08,05/08/2022,05/18/2021,12/2019,03/04/2017 Influenza, Injectable, Quadrivalent 11/12/2022 Influenza,Split Virus,Trivalent,Injectable,PF 04/01/2024 Pneumococcal Vaccine - 13 Valent 03/15/2020 Pneumococcal Vaccine Adult - 23 Valent 11/12/2022,06/09/2011 TDAP Vaccine 11/14/2020 Tetanus Toxoid, Unspecified Formulation 06/09/2009 Zoster Vaccine Recombinant 12/25/2021 Family History Medical History Relation Name Comments Diabetes Brother 1 Glenroy Hypertension Brother 1 Glenroy Diabetes Brother 2 Diabetes Father Hypertension Father Hypertension Mother Relation Name Status Comments Brother 1 Glenroy Alive Brother 2 Father Mother Social History Tobacco Use Types Packs/Day Years Used Date Smoking Tobacco: Never Smokeless Tobacco: Never Tobacco Cessation:Counseling Given: Not Answered Alcohol Use Standard Drinks/Week Comments Yes 1 (1 standard drink = 0.6 oz pur e alcohol) once a week [facility] Utilities Answer Date Recorded In the past 12 months has [employer], gas, oil, or water [employer] threatened to shut off services in your home? Patient declined 10/05/2024 Social Connection and Isolation Panel Answer Date Recorded In a typical week, how many times do you talk on the phone with family, friends, or neighbors? Patient declined 10/05/2024 How often do you get togethe r with friends or relatives? Patient declined 10/05/2024 How often do you attend nondenominational or yarsanism serv ices? Patient declined 10/05/2024 Do you belong to any clubs o r organizations such as nondenominational groups, unions, fraternal or athletic groups, or [...] Total Score - Questions 1-9 0 03/10 [facility] - Occupational Stress Questionnaire Answer Date Recorded [...] any time in the past 12 m ont, were you homeless or living in a senior care (including now)? Patient declined 10/05/2024 Education Answer [...] on file Sexual Orientation Not on file Last Filed Vital Signs Vital Sign Reading Time Taken Comments Blood Pressure 120/72 10/05/2024 8:55 AM CDT Pulse 55 10/05/2024 8:55 AM CDT Temperature 36.3 C (97.3 F) 10/05/2024 8:55 AM CDT Respiratory Rate 20 10/05/2024 8:55 AM CDT Oxygen Saturation 97% 10/05/2024 8:55 AM CDT Inhaled Oxygen Concentration - - Weight 112.3 kg (247 lb 9.6 oz) 10/05/2024 8:55 AM CDT Height 180.3 cm (5' 11) 10/05/2024 8:55 AM CDT Body Mass Index 34.53 10/05/2024 8:55 AM CDT Plan of Treatment Upcoming Encounters Date Type Department Care Team (Late st Contact Info) Description 04/13/2025 9:15 AM INSIDE BARREL POLISHER Office Visit [facility] - [place] [address] [place] [address] Young Martins MD [address] [place] [address] Health Maintenance Due Date Last Done Comments Cologuard 11/28/2007 Immunochemical Fecal Occult Blood 11/28/2007 Hepatitis B Immunization (3 of 3 - Hep B Twinrix 3-dose series) 09/19/2015 04/20/2015, 02/07/2015 Zoster Immunization (2 of 2) 02/19/2022 12/25/2021 Respiratory Syncytial Virus (RSV) Immunization (Adult) (1 - Risk 60-74 years 1-dose series) 2022 SARS-COV-2 Immunization ( season) 2024 03/11/2023, 05/08/2022, 12/25/2021, Additional history exists Influenza Immunization (#1) 02/07/202503/10, 03/03/2023, 11/12/2022, Additional history exists Td Immunization Every 10 Years (Adults With 1 Tdap) 11/14/2030 11/14/2020 Colonoscopy 10/08/2033 10/09/2023, 07/11, 08/04/2014 Colorectal Cancer Screening 10/08/2033 Meningococcal Immunization (ACWY) Aged Out 02/07/2015 No longer eligible based on patient's age to complete this topic Human Papillomavirus (HPV) Immunization Aged Out 04/20/2015, 02/07/2015 No longer eligibl e based on patient's age to complete this topic PSA Discussion Completed 11/28/2021 Pneumococcal Immunization (50+ years) Completed 11/12/2022, 03/15/2020, 06/09/2011 Pneumococcal Immunization Combined Discontinued 11/12/2022, 03/15/2020, 06/09/2011 Rotavirus Immunization Aged Out No lo nger eligible based on patient's age to complete this topic Procedures Procedure Name Priority Date/Time Associated Diagnosis Comments [id number] CONSULT 12/06/2024 12:[address] - HEAD/NECK 12/02/2024 12:00 AM CDT HEMOGLOBIN, A1C 10/05/2024 12:00 AM CDT LIPID PANEL 10/05/2024 12:00 AM CDT THYROID STIMULATING HORMONE (TSH) 10/05/2024 12:00 AM CDT COMPLETE BLOOD COUNT (CBC) WITH DIFF 10/05/2024 12:00 AM CDT CMP (COMPREHENSIVE METABOLIC PANEL) 10/05/2024 12:00 AM CDT HM COLONOSCOPY 10/09/2023 12:00 AM CDT from Last 3 Months or Most Recently Relevant to Health Maintenance Results * [id number] CONSULT (12/06/2024 12:00 AM CDT) 12/06/2024 us Provider Scan GENERIC SCAN ORDERS CONSULT Krissy l Result Performing Organization Address City/[facility] de Phone Number SCAN * CT - HEAD/NECK (12/02/2024 12:00 AM CDT) 12/02/2024 Danya Griffith MD IMG CT ORDERABLES Final Result Performing Organization Address [facility] de Phone Number SCAN * THYROID STIMULATING HORMONE (TSH) (10/05/2024 12:00 AM CDT) 10/05/2024 us Provider Scan CHEMISTRY ORDERABLES Final Resul t Performing Organization Address City/[facility] Co de Phone Number SCAN * LIPID PANEL (10/05/2024 12:00 AM CDT) CHOLESTEROL 155 SCAN HDL CHOLESTEROL 29 SCAN 10/05/2024 us Provider Scan CHEMISTRY ORDERABLES Final Resul t Performing Organization Address City/[facility] Co de Phone Number SCAN * HEMOGLOBIN, A1C (10/05/2024 12:00 AM CDT) HGB-A1C 6.2 SCAN 10/05/2024 us Provider Scan CHEMISTRY ORDERABLES Final Resul t Performing Organization Address City/[facility] Co de Phone Number SCAN * CMP (COMPREHENSIVE METABOLIC PANEL) (10/05/2024 12:00 AM CDT) 10/05/2024 us Provider Scan CHEMISTRY ORDERABLES Final Resul t SCAN * COMPLETE BLOOD COUNT (CBC) WITH DIFF (10/05/2024 12:00 AM CDT) 10/05/2024 us Provider Scan HEMATOLOGY ORDERABLES Final Resu lt SCAN * HM COLONOSCOPY (10/09/2023 12:00 AM CDT) 10/09/2023 us Provider Scan PROCEDURE/MINOR SURGICAL ORDERAB LES Final Result SCAN from Last 3 Months or Most Recently Relevant to Health Maintenance Insurance Gita [place] [id number] [facility] [place] [id number] [employer] Care Teams Payroll Services Analyst Relationship Specialty Start Date End Date Young Martins MD [address] [facility] [address] PCP - General Internal Medicine 03/04/15 Lily Serrano MD [address] [place] [address] Consulting Physician Gastroenterology 09/10/16 Bj Segura MD [address] [place] [address] [address] [place] [address] Consulting Physician Neurology 09/10/16 Cash Marrufo MD [address] [facility] [address] [place] [address] Consulting Physician Psychiatry 09/10/16 Ana Luque, SOFT METALS ENGRAVER HAND, LACQUER MAKER [address] [place] [address] Nurse Practitioner Pain Medicine-Pain Management 07/04/21 Doyle Angeles MD [address] [place] [address] Consulting Physician Orthopaedic Sports Medicine 09/03/22 Pamela Sebastian MD Consulting Physician Endocrinology 09/10/16
--- OUTSIDE RECORDS SUMMARY | 2024-12-15 10:43 | XMS_ITS | Clinical Summary ---
Author Organization [facility] Address [address] [place] [address] Care Team Providers Care Relationship Executive Name Role Phone Unavailable Primary Care Provider Unavailabl e Source Comments [facility],non-owned Affiliates and Associated Physician Practices is amultiple site organization consisting of ambulatory clinics and hospital sitesin [place], [place], [place] and [place]. This disclosure is being madepursuant to the Care Everywhere program and may not contain all information available regarding this patient. Last updated 18.[facility] [facility] Social History Tobacco Use Types Packs/Day Years Used Date Smoking Tobacco: Never Assessed Sex and Gender Information Value Date Recorded Sex Assigned at Not on file Legal Sex Male 12:03 PM CDT Gender Identity Not on file Sexual Orientation Not on file Plan of Treatment Health Maintenance Due Date Last Done Comments COLOGUARD (AGES 45-75) - COL ON CA SCREENING 1962 COLON MONITORING 1962 COLONOSCOPY - COLON CA SCREENING 1962 CT COLONOGRAPHY - COLON CA SCREENING 1962 Colorectal Cancer Screening 1962 FIT - COLON CA SCREENING 1962 FLEX SIG - COLON CA SCREENING 1962 LIPID TESTING 1962 HIV SCREENING 1977 HEPATITIS C SCREENING 11/22/1980 DTAP/TDAP/TD VACCINES (1 - Tdap) 1981 PNEUMOCOCCAL VACCINE 50+ (1 of 1 - PCV) 2012 ZOSTER VACCINE (1 of 2) 2012 COVID-19 VACCINE ( - 2023-2 5 season) 2024 DEPRESSION SCREENING 06/09/2024 INFLUENZA VACCINE (#1) 2025 Respiratory Syncytial Virus (RSV) Vaccine Pt: or over 60 yrs (1 - 1-dose 75+ series) 2037 HEPATITIS B VACCINE Aged Out No longe r eligible based on patient's age to complete this topic HIB VACCINE Aged Out No longer eligi ble based on patient's age to complete this topic HPV VACCINE Aged Out No longer eligi ble based on patient's age to complete this topic MENINGOCOCCAL (Group B) VACC INE SHARED DECISION-MAKING Aged Out No longer eligibl e based on patient's age to complete this topic MENINGOCOCCAL GROUPS A/C/Y/W VACCINE Aged Out No longer eligible b ased on patient's age to complete this topic Insurance [facility] Address: [address] [place] [address] [address] [place] [address] [employer]
--- OUTSIDE RECORDS SUMMARY | 2024-12-15 10:43 | XMS_ITS | Patient Health Record ---
Author Organization [facility] [email or web address] Address [address] [place] [phone] Support Name Relationship Address Phone Alvaro Carrasco Guarantor Unknown [phone] Reason For Referral No Information Medications Medication SIG (Take, Route, Frequency, Duration) Notes Start Date End Date Status Remeron 15mg take 1 tablet by ora ORAL 07/15/2015 Active Remicade 100mg infuse 5MGKG by int INTRAVEN 07/15/2015 Active Truvada 200-300mg take 1 tablet by ora ORAL 201506/09/1899 Active Lexapro 20mg take 1 tablet by ora ORAL 07/15/2015 Active Lisinopril 10mg take 1 tablet by ora ORAL 07/15/19 16 Active amLODIPine Besylate 10mg take 1 tablet by ora ORAL 07/15/2015 Active Problems Problem Type SNOMED Code ICD Code Onset Dates Problem Status W/U Status Risk Notes Problem Testicular hypofunction (796024882) Testicular hypofunction (E29.1) 0 confirmed [place] Problem Anxiety disorder (840302335) Other specified anxiety disorders (F41.8) 0 confirmed [place] Problem Insomnia (054389093) Insomnia due to medical condition (G47.01) 0 confirmed [place] Problem Essential hypertension (93801683) Essential (primary) hypertension (I10) 0 confirmed [place] Problem Crohn's disease (37399294) Crohn's disease, unspecified, without complications (K50.90) 0 confirmed [place]ou Problem High risk heterosexual behavior (757806364257153 ) High risk heterosexual behavior (Z72.51) 0 confirmed Sekou Plan Of Treatment No Information Medical (General) History Surgical History Surgery Date(Month/Year) Excision of toenails Repair of left torn bicep Tonsillectomy
--- OUTSIDE RECORDS SUMMARY | 2024-12-15 10:43 | XMS_ITS | Encounter Summary ---
Author Organization [facility] Address [address] [place] [address] Phone Care Team Providers Care Photographer Name Role Phone Young Martins MD Primary Care Provider [phone] Lily Serrano MD Unavailable [phone] Bj Segura MD Unavailable Cash Marrufo MD Unavailable [phone] Ana Luque APRN, SANITARY LANDFILL OPERATOR Unavailable Doyle Angeles MD Unavailable [phone] Reason for Visit * Reason Comments Medication Refill Encounter Details Date Type Department Care Team (Late st Contact Info) Description 07/05/2023 Refill [facility] - [facility] - [place] [address] [place] [id number] Young Martins MD [address] [place], [place] [id number] Medication Refill Social History Tobacco Use Types Packs/Day Years Used Date Smoking Tobacco: Never Smokeless Tobacco: Never Alcohol Use Standard Drinks/Week Comments Yes 1 (1 standard drink = 0.6 oz pur e alcohol) once a week Education Answer Date Recorded What is the [...] encounter Miscellaneous Notes * Telephone Encounter - Mic Kuo RN - 07/07/2023 11:30 AM CST Refill requested too soon. ECTOR SUBASSEMBLY documented in this encounter Plan of Treatment Upcoming Encounters Date Type Department Care Team (Late st Contact Info) Description 04/13/2025 9:15 AM INSPECTOR SUBASSEMBLY Office Visit [facility] - [place] [address] [place] [address] Young Martins MD [address] [place] [address] documented as of this encounter Visit Diagnoses Not on filedocumented in this encounter Additional Health Concerns Assessment Noted Time PHQ-9 Depression Total Score: 0 11/07/19 18 8:00 AM CDT documented as of this encounter Care Teams Photographer Relationship Specialty Start Date End Date Young Martins MD [address] [place] [address] PCP - General Internal Medicine 03/04/15 Lily Serrano MD [address] [place] [address] [address] Consulting Physician Gastroenterology 09/10/16 Bj Segura MD [address] [place] [address] [address] [place] [address] Consulting Physician Neurology 09/10/16 Cash Marrufo MD [address] [place] [address] [address] [place] [address] Consulting Physician Psychiatry 09/10/16 Ana Luque APRN, SANITARY LANDFILL OPERATOR [address] [place] [address] Nurse Practitioner Pain Medicine-Pain Management 07/04/21 Doyle Angeles MD [address] [place] [address] Consulting Physician Orthopaedic Sports Medicine 09/03/22 Pamela Sebastian MD Consulting Physician Endocrinology 09/10/16 documented as of this encounter
--- OUTSIDE RECORDS SUMMARY | 2024-12-15 10:43 | XMS_ITS | Encounter Summary ---
Author Organization [facility] Address [address] [place] [address] Phone Care Team Providers Care Buyer Name Role Phone Young Martins MD Primary Care Provider [phone] Lily Serrano MD Unavailable [phone] Bj Segura MD Unavailable Cash Marrufo MD Unavailable Ana Luque APRN, JALEEL Unavailable Doyle Angeles MD Unavailable Reason for Visit * Reason Comments Medication Refill Encounter Details Date Type Department Care Team (Late st Contact Info) Description 11/16/2023 Refill [facility] - Primary Care - [place] [address] [place] [id number] Young Martins MD [address] [place], [place] [id number] Medication Refill Social History Tobacco Use Types Packs/Day Years Used Date Smoking Tobacco: Never Smokeless Tobacco: Never Alcohol Use Standard Drinks/Week Comments Yes 1 (1 standard drink = 0.6 oz pur e alcohol) once a week PHQ-2 Answer Date Recorded Total Score - Questions 1-9 0 09/07 Education Answer Date Recorded What is the [...] Telephone Encounter - Mic Kuo RN - 11/16/2023 8:00 AM CDT Medication(s) refilled and signed per [facility] Chronic Medication Refill Standing Order for Pediatricand Adult Patients. Requested Prescriptions Pending Prescriptions Disp Refills amLODIPine (NORVASC) 10 MG Tablet [Pharmacy Med Name: AMLODIPINE BESYLATE 10 MG TAB] 90 Tablet 1 Sig: TAKE 1 TABLET BY MOUTH EVERY DAY Calcium-Channel Blockers Protocol Passed - 11/16/2023 12:51 AM Passed - BP on record in the past year Clinician-entered: BP Readings from Last 3 Encounters: 09/25/23 152/84 03/26/23 140/80 09/03/22 (!) 142/100 Patient-entered: No data recorded Passed - Visit with relevant provider in past 12 months or upcoming 90 days Recent Visits Date Type Provider Dept 09/25/23 Office Visit Young Martins MD [facility] 03/26/23 Office Visit Young Martins MD [facility] Showing recent visits within past 365 days and meeting all other requirements Future Appointments No visits were found meeting these conditions. Showing future appointments within next 90 days and meeting all other requirements documented in this encounter Plan of Treatment Upcoming Encounters Date Type Department Care Team (Late st Contact Info) Description 04/13/2025 9:15 AM [employer]PUTER [employer]PER[employer] SUPERVISOR Office Visit [facility] - Primary Care - [place] [address] [place] [phone] Young Martins MD [address] [place] [address] documented as of this encounter Visit Diagnoses Diagnosis Hypertension, essential Unspecified essential hypertension documented in this encounter Additional Health Concerns Assessment Noted Time PHQ-9 Depression Total Score: 0 09/25/19 24 10:49 AM CDT documented as of this encounter Care Teams Buyer Relationship Specialty Start Date End Date Young Martins MD [address] [place] [address] PCP - General Internal Medicine 03/04/15 Lily Serrano MD [address] [place] [id number] Consulting Physician Gastroenterology 09/10/16 Bj Segura MD [address] [place] [address] [address] [place] [address] Consulting Physician Neurology 09/10/16 Cash Marrufo MD [address] [place] [address] [address] [place] [address] Consulting Physician Psychiatry 09/10/16 Ana Luque APRN, [employer] [address] [place] [address] Nurse Practitioner Pain Medicine-Pain Management 07/04/21 Doyle Angeles MD [address] [place] [address] Consulting Physician Orthopaedic Sports Medicine 09/03/22 Pamela Sebastian MD Consulting Physician Endocrinology 09/10/16 documented as of this encounter
--- OUTSIDE RECORDS SUMMARY | 2024-12-15 10:43 | XMS_ITS | Clinical Summary ---
Author Organization [facility] Address [address] [place] [address] Care Team Providers Care Photographic Equipment Mechanic Name Role Phone Young Martins MD Primary Care Provider + Pamela Sebastian MD Unavailable [phone] Jack Mar MD PhD Unavailable [phone] Sofie Tamez NP Unavailable Maciel Fajardo NP Unavailable [phone] Allergies Active Allergy Reactions Criticality Noted Date Comments Hydralazine Swelling,Rash Medium 07/11/2020 Semaglutide Nausea & Vomiting Low 04/16/2022 Medications acetaminophen (TYLENOL) 500 mg tablet Take 2 tablets (1,000 mg total) by mouth every 6 (six) hours as needed PRN 10/17/19 12 Active lisinopriL (PRINIVIL,ZESTRIL ) 40 mg tablet Take 1 tablet (40 mg total) by mouth nightly 01/20/20 22 Active syringe with needle, safety (BD Integra Syringe) 3 mL 25 gauge x 1 syringe BD Integra Syringe 25G X 1 3 ML Miscellaneous QTY: 0 Days: 0 Refills: 0 Written: 04/10/22 Patient Instructions: 04/10/20 Active buPROPion XL (WELLBUTRIN XL) 300 mg 24 hr tablet Take 450 mg by mouth nightly 05/21/20 22 Active amLODIPine (NORVASC) 10 mg tablet Take 1 tablet (10 mg total) by mouth nightly 09/04/19 23 Active buPROPion XL (WELLBUTRIN XL) 150 mg 24 hr tablet Take 1 tablet (150 mg total) by mouth nightly 07/18/19 23 Active fluticasone propionate (FLONASE) 50 mcg/actuation nasal spray 2 sprays each nostril daily for 1 week followed by 1 spray each nostril daily 1 each 2 12/06/19 23 Active IBUPROFEN ORAL every 6 (six) hours as needed PRN Active safety needles 25 gauge x 5/8 needleIndications :Hypogonadism in male Use to inject testosterone weekly 13 each 3 03/24/20 23 Active syringe, disposable, (BD Luer-Jose Syringe) 3 mL syringeIndication s:Hypogonadism in male Use for testosterone weekly 13 each 3 03/24/20 23 Active papaverine-phento marta-alprostadi l (TRIMIX) solution injectionIndicati ons:Erectile dysfunction due to arterial insufficiency Use once daily PRN prior to intercourse 5 mL 11 06/25/19 24 Active Additional Information Patient not taking.Informant: Self, Reported on 07/30/2024 Descovy 200-25 mg tablet Take 1 tablet by mouth nightly 09/18/19 24 Active hydroCHLOROthiazi de (MICROZIDE) 12.5 mg capsule Take 1 capsule (12.5 mg total) by mouth nightly 09/25/19 24 Active sildenafiL (VIAGRA) 100 mg tablet Take 1 tablet (100 mg total) by mouth as needed 09/25/19 24 Active syringe with needle (BD Luer-Jose Syringe) 3 mL 25 x 5/8 syringeIndication s:Testicular hypofunction USE TO INJECT TESTOSTERONE WEEKLY 13 each 3 03/09/20 24 Active tirzepatide, weight loss, (Zepbound) 2.5 mg/0.5 mL pen injectorIndicatio ns:Sleep apnea in adult,BMI 36.0-36.9,adult Inject 0.5 mL (2.5 mg total) under the skin every 7 days 2 mL 07/30/19 25 Active testosterone cypionate (DEPO-TESTOTERONE ) 200 mg/mL injectionIndicati ons:Hypogonadism in male INJECT 0.6 ML (120 mg) INTO THE MUSCLE INSTRUCTED EVERY 7 DAYS. 4 mL 5 08/01/19 25 Active Hospital, Clinic, or Other Facility Administered Medication Ordered Dose Route Frequency Start Date End Date Status incobotulinumtoxinA (XEOMIN) 100 unit injection 300 UnitsIndications:Cerv ical dystonia 300 Units IM Once for Clinic-Administere d Medication 04/01/2023 Active Active Problems Problem Noted Date Diagnosed Date Polycythemia 09/09/2024 BMI 36.0-36.9,adult 08/01/2024 Sleep apnea in adult 08/01/2024 Gouty arthritis of right knee 01/01/2023 Nausea and vomiting 12/05/2022 Bradycardia 12/05/2022 Otitis media 12/05/2022 Postoperative pain 08/28/2022 Arthritis of right acromioclavicular joint 08/14 Overview (08/14/2022): Added automatically from request for surgery [id number] Complete rupture of rotator cuff 08/14/2022 Overview (08/14/2022): Added automatically from request for surgery [id number] Injury of tendon of long hea d of biceps, right, initial encounter 08/14/2022 Overview (08/14/2022): Added automatically from request for surgery [id number] Paresthesias 04/18/2022 Overview (04/18/2022): Added automatically from request for surgery [id number] Obesity 04/11/2022 Overview (12/23/2022): Added automatically from request for surgery [id number] Chronic pain 04/11/2022 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 Patient had fat stranding and thickening of the skin overlying the left gluteus martha. Continue ceftriaxone daily. P.r.n. pain control. Cellulitis of left lower extremity 10/18/2021 Assessment & Plan (10/18/2021 6:07 PM CDT): Presented wit WBC 14, temp 99, cellulitis of left upper thigh Duplex USG of LLE was negative for DVT. Received 3 doses of vancomycin, one dose of Cefepime Feels better, WBC slightly improved to 13.2, blood cultures remain negative to date Stable for discharge on po Augmentin and Doxycycline X 10 days F/u with PCP. Has immunity to COVID-19 virus 07/16/2021 Overview (04/15/2022): Stanislaw vaccine 08/14/2020; Moderna x 2 Assessment & Plan (04/15/2022 8:22 AM TECHNOLOGY PROJECT MANAGER): Fully vaccinated, eligible for booster. Assessment & Plan (07/16/2021 12:59 PM TECHNOLOGY PROJECT MANAGER): Stanislaw vaccine 08/14/2020; Moderna 04/30/2021 Basal cell carcinoma 08/21/2020 Overview (08/21/2020): Added automatically from request for surgery [id number] Squamous cell carcinoma of left upper extremity 08/21/2020 Overview (08/21/2020): Added automatically from request for surgery [id number] Chronic fatigue 08/01/2020 Prediabetes 08/01/2020 Assessment & Plan (04/18/2022 10:26 AM TECHNOLOGY PROJECT MANAGER): Started on Ozempic per his other doctors. He had some side effects, but is willing to consider doubling up a lower dose and see if this is more tolerable Assessment & Plan (07/18/2021 9:25 AM TECHNOLOGY PROJECT MANAGER): Recent A1c down to normal with diet and lifestyle Assessment & Plan (09/06/2020 1:57 PM CDT): Working with diet, lifestyle. A1c a little higher recently. Consider metformin in the future. Hypertensive encephalopathy 07/13/2020 History of TIA (transient ischemic attack) 07/11 Assessment & Plan (07/11/2020 11:10 PM TECHNOLOGY PROJECT MANAGER): Patient was having difficulty finding his words in the ER. He underwent an MRI, report pending. Will check a fasting lipid panel and A1c. Will check ultrasound of the carotids and echo with bubble study. Neurology has been consulted, await their evaluation. Hypertensive emergency 07/11/2020 Assessment & Plan (07/11/2020 11:11 PM TECHNOLOGY PROJECT MANAGER): With possible emergency with difficulty finding words. Blood pressure has improved currently. Patient is on Zestoretic 03/20.5 at home, will increase lisinopril to 20 mg daily and hydrochlorothiazide to 25 mg daily. Continue to monitor and adjust as needed. 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 Hepatitis C virus infection without hepatic coma 01/28/2018 Assessment & Plan (01/28/2018 10:23 AM CDT): Patient with HCV ab+ but with a recent HCV GT that came back u/d. - waiting for HCV VL to confirm status, but it is very likely that patient has cleared HCV in the past - will call patient once result is available Anxiety and depression 12/22/2017 Assessment & Plan (10/29/2021 2:13 AM CDT): Continue home med Assessment & Plan (07/11/2020 11:11 PM TECHNOLOGY PROJECT MANAGER): Patient is a little anxious at this time. Continue bupropion and Remeron. Insomnia 12/22/2017 Crohn's disease 12/17/2017 Assessment & Plan (10/29/2021 2:11 AM CDT): Patient is on Remicade Assessment & Plan (10/18/2021 6:05 PM CDT): Continue Remicade Assessment & Plan (07/11/2020 11:11 PM TECHNOLOGY PROJECT MANAGER): Patient is on Remicade with Dr. Serrano in [facility]. Anxiety disorder 12/17/2017 Assessment & Plan (10/18/2021 6:05 PM CDT): Continue Wellbutrin Mixed hyperlipidemia 12/17/2017 Assessment & Plan (03/24/2023 10:21 PM CDT): Check lipid panel today. Assessment & Plan (04/18/2022 10:25 AM TECHNOLOGY PROJECT MANAGER): History of high triglyceride in the past, but lipid panel normal 05/18/2021. Likely improved because of diet and exercise. We will follow his lipids in the future as we adjust his testosterone Assessment & Plan (07/18/2021 9:23 AM TECHNOLOGY PROJECT MANAGER): History of high triglyceride in the past, but lipid panel normal 05/18/2021. Likely improved because of diet and exercise. We can recheck lipids with the next blood work Assessment & Plan (03/01/2020 1:03 PM CDT): Not currently on statin. We need to first get his testosterone regulated. Assessment & Plan (01/06/2019 2:48 PM CDT): Not on statin at this time Assessment & Plan (12/24/2017 4:08 PM CDT): No need for medication adjustment at this time Hypertension 12/17/2017 Assessment & Plan (03/24/2023 10:22 PM CDT): Blood pressure elevated today - he notes that it is 120/80s at home. Continue lisinopril, amlodipine. Check BMP today. Assessment & Plan (09/16/2022 2:24 PM CDT): Recently restarted amlodipine with PCP. Denies CP, BEEBE, SOB. Notes much lower BP at home than in the office. Recommended PCP followup. Assessment & Plan (10/18/2021 6:05 PM CDT): BP well controlled. Continue Lisinopril-HCTZ. Assessment & Plan (01/06/2019 2:49 PM CDT): Close to target, managed by his other doctors but he has an irregular heartbeat, which needs follow-up Assessment & Plan (12/24/2017 4:07 PM CDT): Blood pressure a little high, but managed by his other doctors Exposure to HIV virus 07/30/2017 Essential tremor 08/22/2016 Assessment & Plan (03/08/2021 2:09 PM CDT): He also has longstanding postural and action tremor, consistent with ET, a common concurrent finding in the setting of cervical dystonia. His hand tremor does not particularly interfere with any of his activities but should improve with the primidone as well. Assessment & Plan (01/03/2021 1:13 PM CDT): He also has longstanding postural and action tremor, consistent with ET, a common concurrent finding in the setting of cervical dystonia. His hand tremor does not particularly interfere with any of his activities but should improve with the propranolol as well. 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 He had fair benefits from the last botulinum toxin (Xeomin) injections. This benefit has now worn off. He would be an appropriate candidate for repeat injections. The potential risks (including but not limited to bruising, hematoma, neck weakness, dysphagia, infection and injection site pain etc.), benefits, alternatives to chemodenervation were discussed and a signed consent was obtained. Recommendations: Xeomin injected as detailed below. Xeomin administered: 300 U injected (amount wasted: 0 U) into the following muscles using a 1 ml dilution: 20U Scalenus Medius (left) 20U Splenius Capitis (left) 40U Sternocleidomastoid (left) 10U Splenius Capitis (right) 30U Sternocleidomastoid (right) 140U Trapezius (left) 40U Trapezius (right) Assessment & Plan (10/02/2022 5:12 PM CDT): He has late adult onset, progressive, primary focal (isolated cervical) dystonia. He had fair benefits from the last botulinum toxin (Xeomin) injections. This benefit has now worn off. He would be an appropriate candidate for repeat injections. The potential risks (including but not limited to bruising, hematoma, neck weakness, dysphagia, infection and injection site pain etc.), benefits, alternatives to chemodenervation were discussed and a signed consent was obtained. Recommendations: Xeomin injected as detailed below. Xeomin administered: 300 U injected (amount wasted: 0 U) into the following muscles using a 1 ml dilution: 20U Scalenus Medius (left) 20U Splenius Capitis (left) 40U Sternocleidomastoid (left) 10U Splenius Capitis (right) 30U Sternocleidomastoid (right) 180U Trapezius (left) Assessment & Plan (06/25/2022 10:23 AM TECHNOLOGY PROJECT MANAGER): He has late adult onset, progressive, primary focal (isolated cervical) dystonia. He had fair benefits from the last botulinum toxin (Xeomin) injections. This benefit has now worn off. He would be an appropriate candidate for repeat injections. The potential risks (including but not limited to bruising, hematoma, neck weakness, dysphagia, infection and injection site pain etc.), benefits, alternatives to chemodenervation were discussed and a signed consent was obtained. He had some atypical side effects including difficulty opening his lower jaw as well as intermittent difficulty swallowing that started about 4 weeks after the last injections and lasted another few weeks. We discussed the options and decided to try a lower dose instead. Recommendations: Xeomin injected as detailed below. Xeomin administered: 300 U injected (amount wasted: 50 U) into the following muscles using a 1 ml dilution: 20U Scalenus Medius (left) 20U Splenius Capitis (left) 40U Sternocleidomastoid (left) 10U Splenius Capitis (right) 30U Sternocleidomastoid (right) 180U Trapezius (left) Assessment & Plan (01/03/2022 10:32 PM CDT): He has late adult onset, progressive, primary focal (isolated cervical) dystonia. He continues to derive moderate (50-60%) benefits for his neck tightness and head tremor with the botulinum toxin injections. Of note, he has had significantly better benefits with Xeomin after switching from Botox. He however again experienced the typical idiosyncratic reaction (failure to open his jaws completely), which lasted upto about a month after each of his previous four injections. He also endorsed mild neck weakness after the recent dose increase; will downtitrate the Xeomin at the next visit. He also has longstanding postural and action tremor, consistent with ET, a common concurrent finding in the setting of cervical dystonia. His hand tremor does not particularly interfere with any of his activities. He failed to tolerate a trial of primidone or propranolol in the past, primarily due to erectile dysfunction that reportedly improved after stopping the medications. I had previously referred him for DBS as he was interested at one time; but later decided against it. He would likely be a good candidate for DBS. Recommendations: 1. Continue Xeomin injections as per schedule; will reduce dose at the next visit. 2. May consider DBS in the future. 3. Continue daily exercises. This was a telemedicine visit with Alvaro Carrasco alone which took place via Real-time video connection ([employer] Differential or similar). During the visit, I was located in my clinic office in the [facility], in the [place], [place] and the patient was located at his home in [place]. The session started at 13:00 and ended at 13:22. In addition to the time spent during the session with the patient, I spent 2 minutes preparing to see the patient and 10 minutes documenting clinical information in the electronic or other health record on the day of the visit. Total time spend on encounter on the day of the visit: 34 minutes. The patient has been informed that the visit may not be secure and acknowledged the information. It was explained to the patient they have the option of participating in a telephone or video visit during the [facility] [place] [address] emergency. After being given an opportunity to ask questions about and discuss this type of visit, the patient verbally consented to proceeding with the telephone / video visit. The patient understands that this service replaces an office visit and they may be billed and/or responsible for any applicable copayments. Greater than 50% of any time I spent on the call/video was spent in counseling and/or coordination of care as documented in the note. Assessment & Plan (10/11/2021 1:15 PM CDT): He has late adult onset, progressive, primary focal (isolated cervical) dystonia. He had fair benefits from the last botulinum toxin (Xeomin) injections. This benefit has now worn off. He would be an appropriate candidate for repeat injections. The potential risks (including but not limited to bruising, hematoma, neck weakness, dysphagia, infection and injection site pain etc.), benefits, alternatives to chemodenervation were discussed and a signed consent was obtained. Recommendations: Xeomin injected as detailed below. Xeomin administered: 500 U injected (amount wasted: 50 U) into the following muscles using a 1 ml dilution: 40U Scalenus Medius (left) 40U Splenius Capitis (left) 60U Sternocleidomastoid (left) 20U Scalenus Medius (right) 30U Splenius Capitis (right) 30U Sternocleidomastoid (right) 200U Trapezius (left) 80U Trapezius (right) Assessment & Plan (07/17/2021 2:43 PM TECHNOLOGY PROJECT MANAGER): He has late adult onset, progressive, primary focal (isolated cervical) dystonia. He had fair benefits from the last botulinum toxin (Xeomin) injections. This benefit has now worn off. He would be an appropriate candidate for repeat injections. The potential risks (including but not limited to bruising, hematoma, neck weakness, dysphagia, infection and injection site pain etc.), benefits, alternatives to chemodenervation were discussed and a signed consent was obtained. Recommendations: Xeomin injected as detailed below. Xeomin administered: 450 U injected (amount wasted: 50 U) into the following muscles using a 1 ml dilution: 40U Scalenus Medius (left) 40U Splenius Capitis (left) 60U Sternocleidomastoid (left) 20U Scalenus Medius (right) 30U Splenius Capitis (right) 30U Sternocleidomastoid (right) 170U Trapezius (left) 60U Trapezius (right) Assessment & Plan (04/26/2021 11:57 AM TECHNOLOGY PROJECT MANAGER): He has late adult onset, progressive, primary focal (isolated cervical) dystonia. While he has always had moderate benefits for his neck tightness, he has never had a significant subjective improvement of his head tremor with the botulinum toxin injections. He had an idiosyncratic reaction (failure to open his jaws completely which lasted upto about a month after his previous 3 injections, which he only mentioned later). He had modest benefits from the last botulinum toxin injections. This benefit has now worn off; he has had significant progression of his neck tightness and spasm in the interim. He would be an appropriate candidate for repeat injections. The potential risks (including but not limited to bruising, hematoma, neck weakness, dysphagia, infection and injection site pain etc.), benefits, alternatives to chemodenervation were discussed and a signed consent was obtained. He understands the tremor may fail to respond adequately even with the Xeomin injections. He may be a good candidate for DBS; will refer for further evaluation. Recommendations: Xeomin injected as detailed below. Refer for DBS IOV. Xeomin administered: 400 U injected into the following muscles using a 1 ml dilution: 40U Scalenus Medius (left) 20U Splenius Capitis (left) 60U Sternocleidomastoid (left) 20U Scalenus Medius (right) 30U Splenius Capitis (right) 30U Sternocleidomastoid (right) 140U Trapezius (left) 60U Trapezius (right) Assessment & Plan (03/08/2021 2:11 PM CDT): He has late adult onset, progressive, primary focal (isolated cervical) dystonia. While he has always had moderate benefits for his neck tightness, he has never had a significant subjective improvement of his head tremor with the botulinum toxin injections. He had an idiosyncratic reaction (failure to open his jaws completely which lasted upto about a month after his prior 3 injections which he only brought up after the 3rd occasion) to prior injections. We discussed the options including levodopa, baclofen the strategies and potential side effects for dystonia. But given the characteristics of his head tremor, we initiated a trial of propranolol first, which he failed to tolerate due to erectile dysfunction that resolved after he stopped the propranolol. We discussed options and decided to initiate a trial of primidone, strategies and side effects (including and not limited to vertigo, somnolence, gait imbalance and interactions with alcohol etc.) discussed. Botulinum toxin however remains the treatment of choice for his cervical dystonia and discussed possibly reinitiating another trial of botulinum toxin injections possibly with Xeomin given his lack of benefits with Botox in the past; he wanted to proceed with this. We also briefly discussed DBS. Recommendations: 1. Start primidone as directed; side effects and strategies discussed. 2. Please preauthorize Xeomin: 500 Units for the next visit. 3. Consider DBS. My total encounter time on 03/06/21 was 38 minutes, which was spent in the activities documented in the note. This includes time spent prior to the visit and after the visit in direct care of the patient. This time does not include any separately reportable services. Assessment & Plan (01/03/2021 1:08 PM CDT): He has late adult onset, progressive, primary focal (isolated cervical) dystonia. While he has always had moderate benefits for his neck tightness, he has never had a significant subjective improvement of his head tremor with the botulinum toxin injections. He had an idiosyncratic reaction (failure to open his jaws completely which lasted upto about a month after his previous 3 injections, which he only brought up at this visit) to prior injections and does not want to continue with the botulinum toxin injections. We discussed the options including levodopa, baclofen the strategies and potential side effects for dystonia. But given the characteristics of his head tremor, we decided to try a medication for ET first. We discussed options including propranolol and primidone and decided to start with propranolol, strategies and side effects (including and not limited to presyncope, syncope, mood symptoms) discussed. He knows to monitor his heart rate and blood pressure and send us the readings. He is also very interested in DBS, which we briefly discussed. I will be happy to refer him if the medications fail to provide adequate benefit. Recommendations: 1. Start propranolol as directed; side effects and strategies discussed. 2. Consider DBS referral. Assessment & Plan (07/28/2019 10:08 AM TECHNOLOGY PROJECT MANAGER): He has late adult onset, progressive, primary focal (isolated cervical) dystonia. He had fair benefits from the last botulinum toxin injections. This benefit has now started wearing off. He would be an appropriate candidate for repeat injections. The potential risks (including but not limited to bruising, hematoma, neck weakness, dysphagia, infection and injection site pain etc.), benefits, alternatives to chemodenervation were discussed and a signed consent was obtained. Recommendations: Botox injected as detailed below. Botox administered: 500 U injected into the following muscles using a 1 ml dilution: 40U Levator Scapulae (left) 40U Splenius Capitis (left) 40U Sternocleidomastoid (left) 40U Levator Scapulae (right) 40U Scalenus Medius (right) 20U Splenius Capitis (right) 70U Sternocleidomastoid (right) 180U Trapezius (left) 30U Trapezius (right) Assessment & Plan (04/28/2019 1:37 PM TECHNOLOGY PROJECT MANAGER): He has late adult onset, progressive, primary focal (isolated cervical) dystonia. He had excellent benefits from the last botulinum toxin injections. This benefit has now started wearing off. He would be an appropriate candidate for repeat injections. The potential risks (including but not limited to bruising, hematoma, neck weakness, dysphagia, infection and injection site pain etc.), benefits, alternatives to chemodenervation were discussed and a signed consent was obtained. Recommendations: Botox injected as detailed below. Botox administered: 470 U (amount wasted: 30 U) injected into the following muscles using a 1 ml dilution: 40U Levator Scapulae (left) 40U Splenius Capitis (left) 40U Sternocleidomastoid (left) 40U Levator Scapulae (right) 40U Scalenus Medius (right) 20U Splenius Capitis (right) 70U Sternocleidomastoid (right) 40U Trapezius (left) 140U Trapezius (right) Assessment & Plan (01/27/2019 10:31 AM CDT): He has late adult onset, progressive, primary focal (isolated cervical) dystonia. He had excellent benefits from the last botulinum toxin injections. This benefit has now started wearing off. He would be an appropriate candidate for repeat injections. The potential risks (including but not limited to bruising, hematoma, neck weakness, dysphagia, infection and injection site pain etc.), benefits, alternatives to chemodenervation were discussed and a signed consent was obtained. Recommendations: Botox injected as detailed below. Botox administered: 470 U (amount wasted: 30 U) injected into the following muscles using a 1 ml dilution: 40U Levator Scapulae (left) 40U Splenius Capitis (left) 40U Sternocleidomastoid (left) 40U Levator Scapulae (right) 40U Scalenus Medius (right) 20U Splenius Capitis (right) 70U Sternocleidomastoid (right) 40U Trapezius (left) 140U Trapezius (right) Assessment & Plan (10/29/2018 4:41 PM CDT): He has late adult onset, progressive, primary focal (isolated cervical) dystonia. He had excellent benefits from the last botulinum toxin injections. This benefit has now started wearing off. He would be an appropriate candidate for repeat injections. The potential risks (including but not limited to bruising, hematoma, neck weakness, dysphagia, infection and injection site pain etc.), benefits, alternatives to chemodenervation were discussed and a signed consent was obtained. Recommendations: Botox injected as detailed below. Botox administered: 470 U (amount wasted: 30 U) injected into the following muscles using a 1 ml dilution: 40U Levator Scapulae (left) 40U Splenius Capitis (left) 40U Sternocleidomastoid (left) 40U Levator Scapulae (right) 40U Scalenus Medius (right) 20U Splenius Capitis (right) 70U Sternocleidomastoid (right) 40U Trapezius (left) 140U Trapezius (right) Assessment & Plan (07/15/2018 6:56 PM TECHNOLOGY PROJECT MANAGER): He has late adult onset, progressive, primary focal (isolated cervical) dystonia. He had excellent benefits from the last botulinum toxin injections. This benefit has now started wearing off. He would be an appropriate candidate for repeat injections. The potential risks (including but not limited to bruising, hematoma, neck weakness, dysphagia, infection and injection site pain etc.), benefits, alternatives to chemodenervation were discussed and a signed consent was obtained. Recommendations: Botox injected as detailed below. Botox administered: Hypogonadism in male 10/17/2011 Assessment & Plan (03/24/2023 10:21 PM CDT): Will assess trough testosterone today and H/H. Continue testosterone 160 mg SC weekly while awaiting results. Discussed possibility of doing SC injections v. IM injection - patient interested in trying SC - 25 gauge 5/8 needles provided. Refill for sildenafil provided. Assessment & Plan (09/16/2022 2:25 PM CDT): He is on a high dose of testosterone but prior levels ok. Recent Hgb/Hct ok. Check testosterone trough level today. Also due for lipids - will see if can be added on. Assessment & Plan (04/18/2022 10:26 AM TECHNOLOGY PROJECT MANAGER): Clinically doing fair, but we have had to decrease his testosterone due to polycythemia, which has cardiac and cerebrovascular risk. In addition, we can reduce the anastrozole. Assessment & Plan (07/18/2021 9:25 AM TECHNOLOGY PROJECT MANAGER): Still symptomatically somewhat low, despite recent increase in testosterone. He may also benefit from low-dose anastrozole to minimize degradation of testosterone in his system. We can recheck labs, including CBC, hepatic function panel and lipids in a couple of months Assessment & Plan (09/06/2020 1:54 PM CDT): Clinically stable, OK to continue current testosterone therapy. Controlled substances agreement signed today. Assessment & Plan (03/01/2020 1:03 PM CDT): Symptomatically doing well, but he has polycythemia so we need to recheck levels and chemistries. Assessment & Plan (08/19/2019 12:07 PM CDT): Clinically stable, but significant weight gain so he needs some follow-up labs. Also concerned about his A1c. Assessment & Plan (01/06/2019 2:49 PM CDT): Clinically doing well, continue current medication and recheck levels at next visit Assessment & Plan (12/24/2017 4:07 PM CDT): Clinically stable, labs okay. Need to continue same management Abnormal sexual function 10/17/2011 COVID-19 virus infection Overview (02/29/2020): 01/2020. Chronic loss of smell and taste Assessment & Plan (09/06/2020 1:54 PM CDT): Residual taste issues. Resolved Problems Problem Noted Date Diagnosed Date Resolved Date Need for prophylactic measure 11/11/2018 01/04/2019 Screen for STD (sexually transmitted disease) 01/29/20 18 01/04/2019 Assessment & Plan (01/28/2018 10:23 AM CDT): Checking HAV and HBsAb to determine if patient is immune to other viral hepatitides. Grief at loss of child 07/01/201708/18 Encounters Date Type Department Care Team Description 11/18/2024 3:00 PM CDT Infusion [address] [place] [phone] Polycythemia (Primary Dx) 11/18/2024 3:00 PM CDT Lab [address] [place] [phone] Polycythemia (Primary Dx) 11/09/[address] [phone] Izzy Kellogg RN 09/20/2024 2:00 PM CDT Infusion [address] [place] [phone] Polycythemia (Primary Dx); Hypothyroidism due to medication; Chronic fatigue 09/20/2024 1:45 PM CDT Lab [address] [place] [phone] Polycythemia, secondary (Primary Dx) 09/20/2024 Orders Only [facility] Endocrinology Metabolism and Lipid [address] [facility] [address] [place] [address] Johnson Campbell, RN 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); Chronic fatigue; Polycythemia 09/15/2024 Orders Only [facility] Endocrinology Metabolism and Lipid [address] [facility] [address] [place] [address] [place] [address] Lili Andres MD 09/15/[address] [place] [phone] Иван Jordan, CODY 09/15/2024 Orders Only [facility] Endocrinology Metabolism and Lipid [address] [facility] [address] [place] [address] [place] [address] Johnson Campbell, CODY Polycythemia (Primary Dx) from Last 3 Months Immunizations Immunization Administration Dates Next Due HPV, Quadrivalent 04/20/2015,02/07/2015 Hep A / Hep B 04/20/2015,02/07/2015 Influenza, Quadrivalent, Jesika l Culture-based MDCK, Antibiotic Free, Intramuscular 05/06/2018 Influenza, Quadrivalent, Spl it, Preservative Free, Intramuscular 05/18/2021,03/15/2020,03/15/2020,03/30,03/30/2019,03/04/2017,03/04/2017 Influenza, Trivalent, IM (MDV) 5,03/09/2015,06/09/2012,06/09 Influenza, Trivalent, Preser vative Free, Intramuscular 04/20/2015 Vive Nano (J&J) SARS-CoV-2 Vaccination 08/15/2020, 08/14/2020 Meningococcal MCV4, Unspecified 02/07/2015 Meningococcal MCV4P (Menactra) 02/07/2015 Pneumococcal Conjugate PCV 13 03/15/2020, 020 Pneumococcal Polysaccharide PPV23 06/09/2011,06/2011 Tdap 11/14/2020 Tetanus toxoid, adsorbed 06/09/2009 Surgical History Surgery Date Site/Laterality Comments CYST REMOVAL Perirectal, and lesions removed before SPINE SURGERY SKIN CANCER EXCISION BICEPS TENDON REPAIR SHOULDER SURGERY Medical History Medical History Date Comments Depression Depression Other specified effects of e xternal causes, initial encounter Effects of external causes - (Added by TW Conv) Contact with and suspected e xposure to communicable disease Contact with communicable di sease - (Added by TW Conv) Insomnia Crohn's disease (HCC) Hypertension HTN (hypertension) Rotator cuff injury Biceps muscle tear Infectious viral hepatitis Stroke (HCC) tia Autoimmune disease Nausea and vomiting 12/05/2022 SCC (squamous cell carcinoma) Sleep apnea in adult 08/01/2024 Family History Medical History Relation Name Comments Diabetes Brother Diabetes Father Diabetes mellit us; Hypertension Father Hypertension; / Family history of hypertension - (Added by TW Conv) Hypertension Mother Hypertension; / Family history of hypertension - (Added by TW Conv) Hypertension Other Hypertension; Relation Name Status Comments Brother Father Mother Other Social History Tobacco Use Types Packs/Day Years Used Date Smoking Tobacco: Never Passive Smoke Exposure: Never Smokeless Tobacco: Never Tobacco Cessation:Counseling Given: Not Answered Alcohol Use Standard Drinks/Week Comments Yes 0 (1 standard drink = 0.6 oz pur e alcohol) social Humiliation, Afraid, Rape, and Kick questionnair e Answer Date Recorded Within the last year, have y ou been afraid of your partner or ex-partner? No 12/05/2022 Within the last year, have y ou been humiliated or emotionally abused in other ways by your partner or ex-partner? No Within the last year, have y ou been kicked, hit, slapped, or otherwise physically hurt by your partner or ex-partner? No 12/05/2022 Within the last year, have y ou been raped or forced to have any kind of sexual activity by your partner or ex-partner? No 12/05/2022 Social Connection and Isolat ion Panel [NHANES] Answer Date Recorded In a typical week, how many times do you talk on the phone with family, friends, or neighbors? More than three times a week 12/05/2022 How often do you get togethe r with friends or relatives? More than three times a week 12/05/2022 How often do you attend chur ch or mormonism services? Never 12/05/2022 Do you belong to any clubs o r organizations such as mu-ism groups, unions, fraternal or athletic groups, or school groups? No 12/05/2022 How often do you attend meet ings of the clubs or organizations you belong to? Never 12/05/2022 Are you , , di vorced, , never , or living with a partner? 12/05/2022 AUDIT-C Answer Date Recorded Q1: How often do you have a drink containing alc ohol? 2-3 times a week 12/22/2023 Q2: How many drinks containi ng alcohol do you have on a typical day when you are drinking? 3 or 4 12/22/2023 Q3: How often do you have si x or more drinks on one occasion? Never 12/22/2023 Overall Financial Resource Strain (CARDIA) Answe r Date Recorded How hard is it for you to pa y for the very basics like food, housing, medical care, and heating? Not hard at all 12/05/2022 PHQ-2 Answer Date Recorded PHQ-2 Total Score (If total score is 3 or more points, staff should administer the PHQ-9) 0 12/05/2022 [facility] - Occupational Stress Questionnaire Answer Date Recorded Do you feel stress - tense, restless, nervous, or anxious, or unable to sleep at night because your mind is troubled all the time - these days? To some extent 12/05/2022 Exercise Vital Sign Answer Date Recorde d On average, how many days pe r week do you engage in moderate to strenuous exercise (like a brisk walk)? 5 days 12/05/2022 On average, how many minutes do you engage in exercise at this level? 90 min 12/05/2022 Hunger Vital Sign Answer Date Recorded Within the past 12 months, y ou worried that your food would run out before you got the money to buy more. Never true 12/06/19 23 Within the past 12 months, t he food you bought just didn't last and you didn't have money to get more. Never true 12/05/2022 PRAPARE - Transportation Answer Date Re corded In the past 12 months, has l ack of transportation kept you from medical appointments or from getting medications? No 11/08 In the past 12 months, has l ack of transportation kept you from meetings, work, or from getting things needed for daily living? No 12/05/2022 Housing Stability Vital Sign Answer Addison e Recorded In the last 12 months, was t here a time when you were not able to pay the mortgage or rent on time? No 12/05/2022 In the last 12 months, how many places have you lived? 1 12/05/2022 In the last 12 months, was t here a time when you did not have a steady place to sleep or slept in a residential (including now)? No 12/05/2022 Personal Safety Answer Date Recorded Have you ever been in or are you currently in a harmful physical or emotional relationship or is someone making you feel afraid or unsafe? Denies 09/13/2024 Sex and Gender Information Value Date Recorded Sex Assigned at Not on file Legal Sex Male 8:14 PM TECHNOLOGY PROJECT MANAGER Gender Identity Not on file Sexual Orientation Not on file Obstetrics History Last Filed Vital Signs Vital Sign Reading Time Taken Comments Blood Pressure 143/95 11/18/2024 3:25 PM CDT Pulse 54 11/18/2024 3:25 PM CDT Temperature 36.6 C (97.8 F) 11/18/2024 3:25 PM CDT Respiratory Rate 20 11/18/2024 3:25 PM CDT Oxygen Saturation 96% 11/18/2024 3:25 PM CDT Inhaled Oxygen Concentration - - Weight 112.4 kg (247 lb 11.2 oz) 09/13/2024 1:59 PM CDT Height 180.3 cm (5' 11) 09/13/2024 1:59 PM CDT Body Mass Index 34.55 09/13/2024 1:59 PM CDT Plan of Treatment Health Maintenance Due Date Last Done Comments Colon Cancer Screening-Colonoscopy 1962 Regular Well Visit/Exam 18-64 1980 Zoster Vaccine (2 of 2) 02/19/2022 12/25/2021 Prostate Cancer Screening-PSA 11/29/2023 11/28/2021 Depression Screening 12/06/2023 12/05/2022, 12/06/19 23 Covid-19 Vaccine (5 - 2023-2 5 season) 2024 12/25/2021, 04/30/2021, 08/15/2020, Additional history exists Pneumococcal vaccine <65 (3 of 3 - PCV20 or PCV21) 11/13/2027 11/12/2022, 03/15/2020, 03/15/2020, Additional history exists DTaP/Tdap/Td Vaccine (2 - Td or Tdap) 11/14/2030 11/14/2020, 06/09/2009 Hepatitis C Screening Completed 01/04/2022 , 01/28/2018, 01/28/2018, Additional history exists Influenza Vaccine Completed 04/01/2024, , 11/12/2022, Additional history exists Medical Devices Implanted Type Area Customer Solutions Teammate Device Identifier Shelf Expiration Date Model / Serial / Lot Cage-04/01/2018 Implanted:10/24/2 018 (Quantity not on file) Cage N/A: Spine Lumbar Description:Titanium cage ar ound lumbosacral spine [employer] Arthrex Fibertak Tape 3 Load Rotator Cuff Neffs Suture Sterile Latex Free Ar-3633 - [id number] Implanted:Qty: 1 on 08/26/2022 by Doyle Angeles MD at [facility] Right: Shoulder [employer] 06/08/2027 AR-3633 / / [id number] [employer] Swivelock C 4.75mm 19.1mm Closed Eyelet Vent Neffs Suture Ar-2324bcc - [id number] Implanted:Qty: 1 on 08/26/2022 by Doyle Angeles MD at [facility] Right: Shoulder [employer] 08/06/2025 AR-2324BCC / / [id number] [employer] Fiberlink Arthrex Suturetape 1.3mm Tape Suture Nonabsorbable Ar-7535 - [id number] Implanted:Qty: 3 on 08/26/2022 by Dyole Angeles MD at [facility] Right: Shoulder [employer] 08/06/2026 AR-7535 / / [id number] [employer] Swivelock C 4.75mm 19.1mm Closed Eyelet Vent Neffs Suture Ar-2324bcc - [id number] Implanted:Qty: 1 on 08/26/2022 by Doyle Angeles MD at [facility] Right: Shoulder [employer] 08/06/2025 AR-2324BCC / / [id number] [employer] Swivelock C 4.75mm 19.1mm Closed Eyelet Vent Neffs Suture Ar-2324bcc - [id number] Implanted:Qty: 1 on 08/26/2022 by Doyle Angeles MD at [facility] Right: Shoulder [employer] 08/06/2025 AR-2324BCC / / [id number] Procedures Procedure Name Priority Date/Time Associated Diagnosis Comments HEMOGLOBIN AND HEMATOCRIT Routine 11/18/2024 2:45 PM CDT Polycythemia DIFFERENTIAL AUTO Routine 09/20/2024 1:5 0 PM CDT Polycythemia FERRITIN Routine 09/20/2024 1:50 PM CDT Polycythemia CBC WITH AUTO DIFFERENTIAL Routine 09/20/2024 1:50 PM CDT Polycythemia HEPATITIS C ANTIBODY Routine 01/04/2022 4:14 PM CDT PSA SCREEN Routine 11/28/2021 3:24 PM CDT Screening for prostate cancer from Last 3 Months or Most Recently Relevant to Health Maintenance Results * Hemoglobin and hematocrit (11/18/2024 2:45 PM CDT) Hgb 17.0 13.0 - 17.5 g/dL KELLIE NDIAYE (THUY) Comment:Testing performed by : [facility] [address], Medical Office [facility] [address], [place] [address] Hct 49.8 38.9 - 50.3 % KELLIE NDIAYE (TUHY) Comment:Testing performed by : [facility] [address], Medical Office [facility] [address], [place] [address] Blood 11/18/2024 2:45 PM CDT 11/18/2024 2:51 PM CDT us Lili Andres MD LAB BLOOD ORDERABLES Fin al Result KELLIE NDIAYE (BOSWELL) 1 [facility] Department [place] [address] * (ABNORMAL) Differential, auto (09/20/2024 1:50 PM CDT) Neutrophil abs 2.50 1.50 - 6.50 K/cumm Comment:Testing performed by : [place], [address] Imm gran abs 0.02 0.00 - 0.10 K/cumm KELLIE NDIAYE (THUY) Comment:Testing performed by : [place], [address] Lymphocyte abs 4.62(H) 0.80 - 3.30 K/cumm KELLIE NDIAYE (BOSWELL) Comment:Testing performed by : [facility], [facility], [place], [address] Monocyte abs 0.69 0.20 - 0.80 K/cumm [facility] ([place]) Comment:Testing performed by : [facility], [facility], [place], [address] Eosinophil abs 0.15 0.00 - 0.50 K/cumm [facility] ([place]) Comment:Testing performed by : [facility], [facility], [place], [address] Basophil abs 0.06 0.00 - 0.10 K/cumm [facility] ([place]) Comment:Testing performed by : [facility], [facility], [place], [address] Neutrophil pct 31.1 % [facility] ([place]) Comment: Interpretive Data Percent cell count reference ranges are not reported, since discordance with absolute values may lead to misinterpretation of CBC data. Current Interpretive Data was last revised on 2017. Testing performed by: [facility], [facility], [place], [address] Imm gran pct 0.2 % [facility] ([place]) Comment: Interpretive Data Percent cell count reference ranges are not reported, since discordance with absolute values may lead to misinterpretation of CBC data. Current Interpretive Data was last revised on 2017. Testing performed by: [facility], [facility], [place], [address] Lymphocyte pct 57.5 % [facility] ([place]) Comment: Interpretive Data Percent cell count reference ranges are not reported, since discordance with absolute values may lead to misinterpretation of CBC data. Current Interpretive Data was last revised on 2017. Testing performed by: [facility], [place], [address] Monocyte pct 8.6 % [facility] ([place]) Comment: Interpretive Data Percent cell count reference ranges are not reported, since discordance with absolute values may lead to misinterpretation of CBC data. Current Interpretive Data was last revised on 2017. Testing performed by: [facility], [place], [address] Eosinophil pct 1.9 % [facility] ([place]) Comment: Interpretive Data Percent cell count reference ranges are not reported, since discordance with absolute values may lead to misinterpretation of CBC data. Current Interpretive Data was last revised on 2017. Testing performed by: [place], [address] Basophil pct 0.7 % [facility] ([place]) Comment: Interpretive Data Percent cell count reference ranges are not reported, since discordance with absolute values may lead to misinterpretation of CBC data. Current Interpretive Data was last revised on 2017. Testing performed by: [place], [address] Blood 09/20/2024 1:50 PM CDT 09/20/2024 2:00 PM CDT us Lili Andres MD LAB BLOOD ORDERABLES Fin al Result KELLIE NDIAYE ([place]LL) 1 [facility] Department [place] [address] * (ABNORMAL) CBC with auto differential (09/20/2024 1:50 PM CDT) WBC 8.04 3.80 - 9.90 K/cumm Comment:Testing performed by : [place], [address] Hgb 17.4 13.0 - 17.5 g/dL [facility] ([place]) Comment:Testing performed by : [place], [address] Hct 51.8(H) 38.9 - 50.3 % [facility] (THUY) Comment:Testing performed by : [place], [address] Plt 244 150 - 400 K/cumm [facility] ([place]) Comment:Testing performed by : [place], [address] MPV 11.8 9.1 - 12.3 fL [facility] (THUY) Comment:Testing performed by : [facility], [place], [address] RBC 5.68 4.30 - 5.80 M/cumm [facility] (THUY) Comment:Testing performed by : [place], [address] MCV 91.2 81.3 - 96.4 fL [facility] ([place]) Comment:Testing performed by : [place], [address] MCH 30.6 27.1 - 33.3 pg [facility] ([place]) Comment:Testing performed by : [facility], [place], [address] MCHC 33.6 32.3 - 35.7 g/dL [facility] ([place]) Comment:Testing performed by : [facility], [place], [address] RDW CV 14.1 11.1 - 14.9 % [facility] ([place]) Comment:Testing performed by : [place], [address] RDW SD 47.7 35.7 - 48.1 fL [facility] ([place]) Comment:Testing performed by : [facility], [place], [address] NRBC abs 0.00 0.00 - 0.01 K/cumm [facility] ([place]) Comment:Testing performed by : [facility], [place], [address] Blood 09/20/2024 1:50 PM CDT 09/20/2024 2:00 PM CDT us Lili Andres MD LAB BLOOD ORDERABLES Fin al Result Performing Organization Address [facility] Co de Phone Number [facility] ([place]) [address] [place] [address] Department [place] [address] * Ferritin (09/20/2024 1:50 PM CDT) Ferritin 185 30 - 400 ng/mL Comment:Testing performed by : [facility], [place], [address] Blood 09/20/2024 1:50 PM CDT 09/20/2024 2:11 PM CDT us Lili Andres MD LAB BLOOD ORDERABLES Fin al Result KELLIE [facility] ([place]) 1 [facility] Department [place] [address] * Hepatitis C antibody (01/04/2022 4:14 PM CDT) Hep C Ab Nonreactive Nonreactive KELLIE Comment: Interpretive Data Nonreactive: Antibodies to HCV not detected. Does NOT exclude the possibility of recent exposure to HCV. Equivocal: Equivocal for HCV antibodies. Supplemental molecular testing will be automatically performed to determine infection status in accordance with current CDC screening recommendations. Reactive: Positive for HCV antibodies. This may represent current or past HCV infection. Supplemental molecular testing will be automatically performed to determine current infection status in accordance with current CDC screening recommendations. Interpretive data was last revised on 2019. Blood 01/04/2022 4:14 PM CDT 01/04/2022 6:04 PM CDT Tigre Dumont MD LAB MICROBIOL OGY - GENERAL ORDERABLES Edited Result - Final Performing Organization Address [facility] de Phone Number KELLIE [phone] Department [place] [address] * PSA screen (11/28/2021 3:24 PM CDT) PSA-Total 0.86 <=3.90 ng/mL KELLIE Comment: Interpretive Data AGE SEX REFERENCE INTERVAL 0 minutes-150 years Female None 0 minutes-49 years Male None 50-59 years Male 0-3.90 60-69 years Male 0-5.40 70-79 years Male 0-6.20 80-150 years Male 0-6.20 The Marsha PSA Total assay procedure was used. Results from different manufacturers or methods may not be comparable. Serial testing should be performed using the same method. Current interpretive data last revised 21. Blood 11/28/2021 3:24 PM CDT 11/28/2021 4:33 PM CDT Natanael Monroe MD LAB BLOOD ORDER[place] [id number] [address] Department of Laboratories [place], [place] [id number] from Last 3 Months or Most Recently Relevant to Health Maintenance Insurance [facility] [employer] [facility] [facility] AETNA SIGNATURE [place] [id number] [facility] AETNA SIGNATURE Advance Directives For more information, please contact: [phone] * Full Code (Latest Code Status on File) Date Activated Date Inactivated Comments 12/05/2022 6:14 AM 12/05/2022 4:01 PM * Full Code Date Activated Date Inactivated Comments 08/28/2022 12:50 AM 08/28/2022 8:03 PM * LIMITED - No CPR Date Activated Date Inactivated Comments 10/29/2021 2:11 AM 10/30/2021 3:48 PM * Full Code Date Activated Date Inactivated Comments 10/28/2021 5:41 PM 10/29/2021 2:11 AM * Full Code Date Activated Date Inactivated Comments 10/18/2021 1:45 AM 10/18/2021 11:17 PM Care Teams Photographic Equipment Mechanic Relationship Specialty Start Date End Date Young Martins MD PCP - General 04/09/17 Pamela Sebastian MD Referring Physician Endocrinology Diabetes & Metabolism 08/19/19 Jack Mar MD PhD Consulting Physician Neurology 07/18/21 Sofie Tamez NP Nurse Practitioner 04/16/22 Maciel Fajardo, FAITH [address] [place] [address] DR PEREZ [address] [place] [id number] Nurse Practitioner Nurse Practitioner 08/26/22
--- OUTSIDE RECORDS SUMMARY | 2024-12-15 10:43 | XMS_ITS | Referral Summary ---
Author Organization [facility] Address [address] [place] [address] Care Team Providers Care Special Agent Group Insurance Name Role Phone Young Martins MD Primary Care Provider + Pamela Sebastian MD Unavailable [phone] Jack Mar MD PhD Unavailable [phone] Sofie Tamez NP Unavailable Maciel Fajardo NP Unavailable [phone] Encounters Date Type Department Care Team Description 11/18/2024 3:00 PM CDT Infusion [address] [place] [phone] Polycythemia (Primary Dx) 11/18/2024 3:00 PM CDT Lab [address] [place] [phone] Polycythemia (Primary Dx) 11/09/[address] [place] [phone] Izzy Kellogg RN 09/20/2024 Orders Only [facility] Endocrinology Metabolism and Lipid [address] [facility] [address] [facility] [address] [place] [address] Johnson Campbell, CODY 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); Chronic fatigue; Polycythemia 09/20/2024 1:45 PM CDT Lab [address] [place] [address] Polycythemia, secondary (Primary Dx) 09/20/2024 2:00 PM CDT Infusion [address] [place] [address] Polycythemia (Primary Dx); Hypothyroidism due to medication; Chronic fatigue 09/15/2024 Orders Only [facility] Endocrinology Metabolism and Lipid [address] [facility] 5th [place] [address] [place] [address] Lili Andres MD 09/15/[address] [place] [phone] Иван Jordan RN 09/15/2024 Orders Only [facility] Endocrinology Metabolism and Lipid [address] [facility] 5[address] [place] [address] [place] [address] Johnson Campbell, CODY Polycythemia (Primary Dx) from Last 3 Months Allergies Active Allergy Reactions Criticality Noted Date Comments Hydralazine Swelling,Rash Medium 07/11/2020 Semaglutide Nausea & Vomiting Low 04/16/2022 Medications acetaminophen (TYLENOL) 500 mg tablet Take 2 tablets (1,000 mg total) by mouth every 6 (six) hours as needed PRN 10/17/19 12 Active lisinopriL (PRINIVIL,ZESTRIL ) 40 mg tablet Take 1 tablet (40 mg total) by mouth nightly 01/20/20 Active syringe with needle, safety (BD Integra Syringe) 3 mL 25 gauge x 1 syringe BD Integra Syringe 25G X 1 3 ML Miscellaneous QTY: 0 Days: 0 Refills: 0 Written: 04/10/22 Patient Instructions: 04/10/20 Active buPROPion XL (WELLBUTRIN XL) 300 mg 24 hr tablet Take 450 mg by mouth nightly 05/21/20 Active amLODIPine (NORVASC) 10 mg tablet Take 1 tablet (10 mg total) by mouth nightly 09/04/19 Active buPROPion XL (WELLBUTRIN XL) 150 mg 24 hr tablet Take 1 tablet (150 mg total) by mouth nightly 07/18/19 Active fluticasone propionate (FLONASE) 50 mcg/actuation nasal spray 2 sprays each nostril daily for 1 week followed by 1 spray each nostril daily 1 each 2 12/06/19 Active IBUPROFEN ORAL every 6 (six) hours as needed PRN Active safety needles 25 gauge x 5/8 needleIndications :Hypogonadism in male Use to inject testosterone weekly 13 each 3 03/24/20 Active syringe, disposable, (BD Luer-Jose Syringe) 3 mL syringeIndication s:Hypogonadism in male Use for testosterone weekly 13 each 3 03/24/20 Active papaverine-phento marta-alprostadi l (TRIMIX) solution injectionIndicati [...] (08/14/2022): Added automatically from request for surgery [id number] Complete rupture of rotator cuff 08/14/2022 Overview (08/14/2022): Added automatically from request for surgery [id number] Injury of tendon of long hea d of biceps, right, initial encounter 08/14/2022 Overview (08/14/2022): Added automatically from request for surgery [id number] Paresthesias 04/18/2022 Overview (04/18/2022): Added automatically from request for surgery [id number] Obesity 04/11/2022 Overview (12/23/2022): Added automatically from request for surgery [id number] Chronic pain 04/11/2022 Deficiency of testosterone biosynthesis [...] 2 Assessment & Plan (04/15/2022 8:22 AM CLEARING TUB WORKER): Fully vaccinated, eligible for booster. Assessment & Plan (07/16/2021 12:59 PM CLEARING TUB WORKER): Stanislaw vaccine 08/14/2020; Moderna 04/30/2021 Basal cell carcinoma 08/21/2020 Overview (08/21/2020): Added automatically from request for surgery [id number] Squamous cell carcinoma of left upper extremity 08/21/2020 Overview (08/21/2020): Added automatically from request for surgery [id number] Chronic fatigue 08/01/2020 Prediabetes 08/01/2020 Assessment & Plan (04/18/2022 10:26 AM CLEARING TUB WORKER): Started on Ozempic per his other doctors. He had some side effects, but is willing to consider doubling up a lower dose and see if this is more tolerable Assessment & Plan (07/18/2021 9:25 AM CLEARING TUB WORKER): Recent A1c down to normal with diet and lifestyle Assessment & Plan (09/06/2020 1:57 PM CDT): Working with diet, lifestyle. A1c a little higher recently. Consider metformin in the future. Hypertensive encephalopathy 07/13/2020 History of TIA (transient ischemic attack) 07/11 Assessment & Plan (07/11/2020 11:10 PM CLEARING TUB WORKER): Patient was having difficulty finding his words in the ER. He underwent an MRI, report pending. Will check a fasting lipid panel and A1c. Will check ultrasound of the carotids and echo with bubble study. Neurology has been consulted, await their evaluation. Hypertensive emergency 07/11/2020 Assessment & Plan (07/11/2020 11:11 PM CLEARING TUB WORKER): With possible emergency with difficulty finding words. Blood pressure has improved currently. Patient is on Zestoretic 03/20. at home, will increase lisinopril to 20 mg daily and hydrochlorothiazide to 25 mg daily. Continue to monitor and adjust as needed. 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 Continue bupropion and Remeron. Insomnia 12/22/2017 Crohn's disease 12/17/2017 Assessment & Plan (10/29/2021 2:11 AM CDT): Patient is on Remicade Assessment & Plan (10/18/2021 6:05 PM CDT): Continue Remicade Assessment & Plan (07/11/2020 11:11 PM CLEARING TUB WORKER): Patient is on Remicade with Dr. Serrano in [facility]. Anxiety disorder 12/17/2017 Assessment & Plan (10/18/2021 6:05 PM CDT): Continue Wellbutrin Mixed hyperlipidemia 12/17/2017 Assessment & Plan (03/24/2023 10:21 PM CDT): Check lipid panel today. Assessment & Plan (04/18/2022 10:25 AM CLEARING TUB WORKER): History of high triglyceride in the past, but lipid panel normal 05/18/2021. Likely improved because of diet and exercise. We will follow his lipids in the future as we adjust his testosterone Assessment & Plan (07/18/2021 9:23 AM CLEARING TUB WORKER): History of high triglyceride in the past, [...] (left) Assessment & Plan (06/25/2022 10:23 AM CLEARING TUB WORKER): He has late adult onset, progressive, primary [...] which took place via Real-time video connection (Red Crow, Naviscan or similar). During the visit, I was located in my clinic office in the [facility], in the [place], [place] and the patient was located at his home in [place]. The session started at 13:00 and ended [...] a telephone or video visit during the [facility] [place] [address] emergency. After being given an opportunity to [...] (right) Assessment & Plan (07/17/2021 2:43 PM CLEARING TUB WORKER): He has late adult onset, progressive, primary [...] (right) Assessment & Plan (04/26/2021 11:57 AM CLEARING TUB WORKER): He has late adult onset, progressive, primary [...] referral. Assessment & Plan (07/28/2019 10:08 AM CLEARING TUB WORKER): He has late adult onset, progressive, primary [...] (right) Assessment & Plan (04/28/2019 1:37 PM CLEARING TUB WORKER): He has late adult onset, progressive, primary [...] (right) Assessment & Plan (07/15/2018 6:56 PM CLEARING TUB WORKER): He has late adult onset, progressive, primary [...] on. Assessment & Plan (04/18/2022 10:26 AM CLEARING TUB WORKER): Clinically doing fair, but we have had to decrease his testosterone due to polycythemia, which has cardiac and cerebrovascular risk. In addition, we can reduce the anastrozole. Assessment & Plan (07/18/2021 9:25 AM CLEARING TUB WORKER): Still symptomatically somewhat low, despite recent increase [...] hepatitides. Grief at loss of child 07/01/201708/18 Immunizations Immunization Administration Dates Next Due HPV, Quadrivalent 04/20/2015,02/07/2015 Hep A / Hep B 04/20/2015,02/07/2015 Influenza, Quadrivalent, Jesika l Culture-based MDCK, Antibiotic Free, Intramuscular 05/06/2018 Influenza, Quadrivalent, Spl it, Preservative Free, Intramuscular 05/18/2021,03/15/2020,03/15/2020,03/30,03/30/2019,03/04/2017,03/04/2017 Influenza, Trivalent, IM (MDV) 5,03/09/2015,06/09/2012,06/09 Influenza, Trivalent, Preser vative Free, Intramuscular 04/20/2015 [place] (J&J) SARS-CoV-2 Vaccination 08/15/2020, 08/14/2020 Meningococcal MCV4, Unspecified 02/07/2015 Meningococcal MCV4P (Menactra) 02/07/2015 Pneumococcal Conjugate PCV 13 03/15/2020, 020 Pneumococcal Polysaccharide PPV23 06/09/2011,06/2011 Tdap 11/14/2020 Tetanus toxoid, adsorbed 06/09/2009 Social History Tobacco Use Types Packs/Day Years [...] often do you attend chur ch or bahai services? Never 12/05/2022 Do you belong to any clubs o r organizations such as sikh groups, unions, fraternal or athletic groups, or [...] staff should administer the PHQ-9) 0 12/05/2022 [facility] [place] [facility] - Occupational Stress Questionnaire Answer Date Recorded [...] place to sleep or slept in a penitentiary (including now)? No 12/05/2022 Personal Safety Answer Date Recorded Have you ever been in or are you currently in a harmful physical or emotional relationship or is someone making you feel afraid or unsafe? Denies 09/13/2024 Sex and Gender Information Value Date Recorded Sex Assigned at Not on file Legal Sex Male 8:14 PM CLEARING TUB WORKER Gender Identity Not on file Sexual Orientation [...] 09/13/2024 1:59 PM CDT Plan of Treatment Not on file Medical Devices Implanted Type Area Amusement Ride Operator Device Identifier Shelf Expiration Date Model / Serial / Lot Cage-04/01/2018 Implanted: [id number] (Quantity not on file) Cage N/A: Spine Lumbar Description:Titanium cage ar ound lumbosacral spine [employer] Arthrex Fibertak Tape 3 Load Rotator Cuff [place] Suture Sterile Latex Free Ar-3633 - [id number] Implanted:Qty: 1 on 08/26/2022 by Doyle Angeles MD at [facility] Right: Shoulder [employer] 06/08/2027 AR-3633 / / [id number] [employer] Swivelock C 4.75mm 19.1mm Closed Eyelet Vent [place] Suture Ar-2324bcc - [id number] Implanted:Qty: 1 on 08/26/2022 by Doyle Angeles MD at [facility] Right: Shoulder [employer] 08/06/2025 AR-2324BCC / / [id number] [employer] Fiberlink Arthrex Suturetape 1.3mm Tape Suture Nonabsorbable Ar-7535 - [id number] Implanted:Qty: 3 on 08/26/2022 by Doyle Angeles MD at [facility] Right: Shoulder [employer] 08/06/2026 AR-7535 / / [id number] [employer] Swivelock C 4.75mm 19.1mm Closed Eyelet Vent [place] Suture Ar-2324bcc - [id number] Implanted:Qty: 1 on 08/26/2022 by Doyle Angeles MD at [facility] Right: Shoulder [employer] 08/06/2025 AR-2324BCC / / [id number] [employer] Swivelock C 4.75mm 19.1mm Closed Eyelet Vent [place] Suture Ar-2324bcc - [id number] Implanted:Qty: 1 on 08/26/2022 by Doyle Angeles MD at [facility] Right: Shoulder [employer] 08/06/2025 AR-2324BCC / / [id number] Procedures Procedure Name Priority Date/Time Associated Diagnosis [...] Hemoglobin and hematocrit (11/18/2024 2:45 PM CDT) Pathologist [facility] Hgb 17.0 13.0 - 17.5 g/dL KELLIE NDIAYE ([place]) Comment:Testing performed by : [facility] [address], Medical Office [facility] [address], [place] [address] Hct 49.8 38.9 - 50.3 % KELLIE NDIAYE ([place]) Comment:Testing performed by : [facility] [address], Medical Office [facility] [address], [place] [address] Blood 11/18/2024 2:45 PM CDT 11/18/2024 2:51 PM CDT Lili Andres MD LAB BLOOD ORDERABLES Fin al Result KELLIE NDIAYE ([place]) [address] [facility] Department [place] [address] * (ABNORMAL) Differential, auto (09/20/2024 1:50 PM CDT) Pathologist [facility] Neutrophil abs 2.50 1.50 - 6.50 K/cumm Comment:Testing performed by : [facility], [address] [facility], [place], [address] Imm gran abs 0.02 0.00 - 0.10 K/cumm KELLIE NDIAYE ([place]) Comment:Testing performed by : [facility], [facility], [place], [address] Lymphocyte abs 4.62(H) 0.80 - 3.30 K/cumm [facility] ([place]) Comment:Testing performed by : [facility], [facility], [place], [address] Monocyte abs 0.69 0.20 - 0.80 K/cumm [facility] ([place]) Comment:Testing performed by : [facility], [facility], [place], [address] Eosinophil abs 0.15 0.00 - 0.50 K/cumm [facility] ([place]) Comment:Testing performed by : [facility], [facility], [place], [address] Basophil abs 0.06 0.00 - 0.10 K/cumm [facility] ([place]) Comment:Testing performed by : [facility], [place], [address] Neutrophil pct 31.1 % [facility] ([place]) Comment: Interpretive Data Percent cell count reference ranges are not reported, since discordance with absolute values may lead to misinterpretation of CBC data. Current Interpretive Data was last revised on 2017. Testing performed by: [facility], [facility], [place], [address] Imm gran pct 0.2 % [facility] ([place]) Comment: Interpretive Data Percent cell count reference ranges are not reported, since discordance with absolute values may lead to misinterpretation of CBC data. Current Interpretive Data was last revised on 2017. Testing performed by: [place], [address] Lymphocyte pct 57.5 % [facility] ([place]) Comment: Interpretive Data Percent cell count reference ranges are not reported, since discordance with absolute values may lead to misinterpretation of CBC data. Current Interpretive Data was last revised on 2017. Testing performed by: [place], [address] Monocyte pct 8.6 % [facility] ([place]) Comment: Interpretive Data Percent cell count reference ranges are not reported, since discordance with absolute values may lead to misinterpretation of CBC data. Current Interpretive Data was last revised on 2017. Testing performed by: [place], [address] Eosinophil pct 1.9 % ANT [facility] ([place]) Comment: Interpretive Data Percent cell count reference ranges are not reported, since discordance with absolute values may lead to misinterpretation of CBC data. Current Interpretive Data was last revised on 2017. Testing performed by: [facility], [place], [address] Basophil pct 0.7 % [facility] ([place]) Comment: Interpretive Data Percent cell count reference ranges are not reported, since discordance with absolute values may lead to misinterpretation of CBC data. Current Interpretive Data was last revised on 2017. Testing performed by: [facility], [place], [address] Blood 09/20/2024 1:50 PM CDT 09/20/2024 2:00 PM CDT us Lili Andres MD LAB BLOOD ORDERABLES Fin al Result KELLIE NDIAYE ([place]) 1 [facility] Department [place] [address] * (ABNORMAL) CBC with auto differential (09/20/2024 1:50 PM CDT) WBC 8.04 3.80 - 9.90 K/cumm Comment:Testing performed by : [place], [address] Hgb 17.4 13.0 - 17.5 g/dL KELLIE NDIAYE ([place]) Comment:Testing performed by : [place], [address] Hct 51.8(H) 38.9 - 50.3 % [facility] ([place]) Comment:Testing performed by : [place], [address] Plt 244 150 - 400 K/cumm [facility] ([place]) Comment:Testing performed by : [facility], [place], [address] MPV 11.8 9.1 - 12.3 fL KELLIE NDIAYE ([place]) Comment:Testing performed by : [facility], [place], [address] RBC 5.68 4.30 - 5.80 M/cumm [facility] ([place]) Comment:Testing performed by : [place], [address] MCV 91.2 81.3 - 96.4 fL [facility] ([place]) Comment:Testing performed by : [place], [address] MCH 30.6 27.1 - 33.3 pg [facility] ([place]) Comment:Testing performed by : [facility], [place], [address] MCHC 33.6 32.3 - 35.7 g/dL [facility] ([place]) Comment:Testing performed by : [place], [address] RDW CV 14.1 11.1 - 14.9 % [facility] ([place]) Comment:Testing performed by : [place], [address] RDW SD 47.7 35.7 - 48.1 fL [facility] ([place]) Comment:Testing performed by : [facility], [place], [address] NRBC abs 0.00 0.00 - 0.01 K/cumm [facility] ([place]) Comment:Testing performed by : [place], [address] Blood 09/20/2024 1:50 PM CDT 09/20/2024 2:00 PM CDT Lili Andres MD LAB BLOOD ORDERABLES Fin al Result [facility] ([place]) [address] [place] [address] Department [place] [address] * Ferritin (09/20/2024 1:50 PM CDT) Ferritin 185 30 - 400 ng/mL Comment:Testing performed by : [facility], [place], [address] Blood 09/20/2024 1:50 PM CDT 09/20/2024 2:11 PM CDT Lili Andres MD LAB BLOOD ORDERABLES Fin al Result KELLIE [facility] ([place]) 1 [facility] Department [place] [address] * Hepatitis C antibody (01/04/2022 4:14 PM CDT) Hep C Ab Nonreactive Nonreactive KELLIE CODY Comment: Interpretive Data Nonreactive: Antibodies to HCV [...] Edited Result - Final Performing Organization Address City/[facility] Co de Phone Number KELLIE [address] Department [place] [address] * PSA screen (11/28/2021 3:24 PM CDT) PSA-Total 0.86 <=3.90 ng/mL KELLIE CODY Comment: Interpretive Data AGE SEX REFERENCE INTERVAL [...] CDT Natanael Monroe MD LAB BLOOD ORDERABLES nal Result Performing Organization Address City/State/ZIP Co nm Phone Number KELLIE CODY [address] Department [place] [address] from Last 3 Months or Most Recently Relevant to Health Maintenance Insurance [address] [place] [id number] Junko Tada AETNA SIGNATURE [address] [place] [address] Junko Tada AETNA SIGNATURE [place] DOTSON [id number] [facility] AETNA SIGNATURE Advance Directives For more information, please contact: [phone] * Full Code (Latest Code Status on [...] 1:45 AM 10/18/2021 11:17 PM Care Teams Special Agent Group Insurance Relationship Specialty Start Date End Date Young Martins MD PCP - General 04/09/17 Pmaela Sebastian MD Referring Physician Endocrinology Diabetes & Metabolism 08/19/19 Jack Mar MD PhD Consulting Physician Neurology 07/18/21 Sofie Tamez NP Nurse Practitioner 04/16/22 Maciel Fajardo NP [address] [place] [address] DR PEREZ [address] [place] [id number] Nurse Practitioner Nurse Practitioner 08/26/22
== END 2024-12-15 10:40 | disposition home or self-care (01) ==
LOC: ANHBWCAUD 10:39
PROVIDERS: PCP Otolaryngology Otolaryngology/Facial Plastic Surgery; Visit Provider Otolaryngology Otolaryngology/Facial Plastic Surgery
DX: H90.41 Sensorineural hearing loss, unilateral, right ear, with unrestricted hearing on the contralateral side (principal); H90.12 Conductive hearing loss, unilateral, left ear, with unrestricted hearing on the contralateral side
CPT/HCPCS: 92557; 92567